=== PATIENT | female | born 1965 | race American Indian/Alaskan Native ===

== ENCOUNTER 2017-07-08 13:28 | Inpatient (IN) | payer OTHER ==
[2017-07-08 14:36] LABS: Basophils % (Auto) 0.2 % (0.0-1.8); Hematocrit 37.6 % (30.3-42.9); Lymphocytes # (Auto) 0.8 K/mm3 (1.2-5.4); Lymphocytes % (Auto) 6.4 % (13.4-35.0); Mean Corpuscular HGB Conc 35 % (30-34); Mean Corpuscular Hemoglobin 38 pg (28-32); Mean Corpuscular Volume 110 fl (79-97); Monocytes # (Auto) 0.5 K/mm3 (0.0-0.8); Monocytes % (Auto) 3.6 % (0.0-7.3); Platelet Count 153 K/mm3 (140-440); Red Blood Count 3.43 M/mm3 (3.65-5.03); Red Cell Distribution Width 18.7 % (13.2-15.2)
[2017-07-08 14:55] LABS: BUN/Creatinine Ratio 25; Blood Urea Nitrogen 20 mg/dL (7-17); Hemolysis Index 4
--- NOTE | 2017-07-08 15:57 | XRay Report ---
CHEST 2 VIEWS INDICATION: Shortness of breath.. COMPARISON: None similar. FINDINGS: PA and lateral chest radiographs demonstrate normal cardiomediastinal silhouette. Clear, slightly hyperexpanded lungs. Mild eventration of the right hemidiaphragm anteriorly. Intact bones. CONCLUSION: No acute disease in the chest. Thank you for the opportunity to participate in this patient's care.
[2017-07-08] MEDS ORDERED: NACL 0.9% 1000 ML 1,000 ML IV ONE (23:41)
[2017-07-08] MEDS ORDERED: NACL 0.9% IV SCH (23:45)
[2017-07-08] MEDS ORDERED: KCL IV SCH (23:45)
[2017-07-08] MEDS ORDERED: NACL 0.9% 1000 ML 1,000 ML ONE (23:58)
--- NOTE | 2017-07-09 00:04 | Emergency Department Report ---
ED General Adult HPI - General Chief complaint: Dyspnea/Respdistress Stated complaint: CP/SOB Time Seen by Provider: 07/08/17 23:14 Source: patient Mode of arrival: Ambulatory Limitations: No Limitations - History of Present Illness Initial comments: Patient fell about 9 days ago she had flu like symptoms. 2 days later she started having nausea and vomiting and diarrrhea. She's felt very weak since then. Yesterday she started having right-sided chest pain of mild to moderate intensity and nonradiating with no aggravating or relieving factor. Patient said that for the past 5 days she has not been able to keep anything down and has been having nausea and vomiting. She is also complaining of right upper quadrant pain and epigastric pain of moderate intensity and nonradiating with no aggravating or relieving factor. Patient said about 2 days ago she did have a fever however this has since subsided. Today the patient felt lightheaded and dizzy and actually passed out. 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 Patient said whenever she has symptoms like this she tends to have low potassium as a result she was taking potassium tablets but she doubts if she was able to keep them down. Severity scale (0 -10): 5 Associated Symptoms: nausea/vomiting - Related Data Allergies Allergy/AdvReac Type Severity Reaction Status Date / Time No Known Allergies Allergy Unverified 07/08/17 14:11 ED Review of Systems ROS: Stated complaint: CP/SOB Other details as noted in HPI Comment: All other systems reviewed and negative ED Past Medical Hx - Past Medical History Previous Medical History?: Yes Hx Arthritis: Yes Hx Psychiatric Treatment: Yes (anxiety) Additional medical history: swine flu 2010, Bronchitis - Surgical History Past Surgical History?: Yes Additional Surgical History: Partial hysterectomy, x 2 - Social History Smoking Status: Current Every Day Smoker Substance Use Type: Alcohol, Prescribed ED Physical Exam - General Limitations: No Limitations General appearance: alert, lethargic - Head Head exam: Present: atraumatic, normocephalic - Eye Eye exam: Present: normal appearance, PERRL, other (icteric conjunctiva) - ENT ENT exam: Present: normal exam, normal orophraynx - Neck Neck exam: Present: normal inspection. Absent: tenderness - Respiratory Respiratory exam: Present: normal lung sounds bilaterally. Absent: respiratory distress - Cardiovascular Cardiovascular Exam: Present: regular rate, normal rhythm. Absent: systolic murmur, diastolic murmur, rubs, gallop - GI/Abdominal GI/Abdominal exam: Present: soft, tenderness (right upper quadrant tenderness.) , normal bowel sounds, organomegaly (the liver is palpably enlarged) - Rectal Rectal exam: Present: deferred - Extremities Exam Extremities exam: Present: normal inspection. Absent: full ROM - Back Exam Back exam: Present: normal inspection, full ROM - Neurological Exam Neurological exam: Present: alert, oriented X3 - Psychiatric Psychiatric exam: Present: normal affect, normal mood - Skin Skin exam: Present: warm, dry, intact, normal color. Absent: rash ED Course Vital Signs 07/08/17 07/08/17 07/08/17 14:06 20:18 22:01 Temperature 97.5 F L 97.6 F 97.7 F Pulse Rate 101 H 100 H 104 H Respiratory 16 16 20 Rate Blood Pressure 107/65 Blood Pressure 109/69 [Left] Blood Pressure 97/56 [Right] O2 Sat by Pulse 100 96 96 Oximetry 07/08/17 07/08/17 07/08/17 22:03 23:41 23:46 Temperature Pulse Rate 96 H Respiratory 20 15 16 Rate Blood Pressure 105/60 Blood Pressure [Left] Blood Pressure [Right] O2 Sat by Pulse 96 94 96 Oximetry 07/08/17 07/09/17 07/09/17 23:57 00:00 00:16 Temperature 98.5 F Pulse Rate 96 H 95 H Respiratory 19 14 Rate Blood Pressure 107/63 107/63 Blood Pressure [Left] Blood Pressure [Right] O2 Sat by Pulse 97 98 Oximetry ED Medical Decision Making - Lab Data Result diagrams: 07/08/17 14:17 07/08/17 14:17 - EKG Data -: EKG Interpreted by Pa EKG shows normal: sinus rhythm (Normal sinus rhythm at a rate of 97), axis ( normal axis), intervals (prolonged QT interval), QRS complexes (normal), ST-T waves (no ST or T-wave changes) - Radiology Data Radiology results: report reviewed - Medical Decision Making I talked to who as decided to admit the patient. Critical care attestation.: If time is entered above; I have spent that time in minutes in the direct care of this critically ill patient, excluding procedure time. ED Disposition Clinical Impression: Hyponatremia, Syncope, Hypokalemia, Elevated liver function tests Disposition: DC-09 OP ADMIT IP TO THIS HOSP Is pt being admited?: Yes Does the pt Need Aspirin: No Condition: Stable
[2017-07-09 00:55] LABS: Bilirubin,Direct 10.4 mg/dL (0-0.2)
[2017-07-09] MEDS ORDERED: KCL 10 MEQ in NACL 0.9% 1000 ML 1,000 ML IV SCH (01:00)
[2017-07-09] MEDS ORDERED: KCL IV ONE ×2 (01:30→06:00)
[2017-07-09] MEDS ORDERED: NACL 0.9% IV ONE (01:30)
--- NOTE | 2017-07-09 01:57 | Ultrasound Report ---
FINAL REPORT EXAM: US ABDOMEN LIMITED HISTORY: right upper quadrant pain, enlarged liver TECHNIQUE: Routine imaging was obtained of the right upper quadrant. FINDINGS: The liver reveals diffusely increased echotexture suggesting fatty change/cirrhosis. There are no focal hepatic lesions. The gallbladder is normal in size and wall thickness. There is dependent sludge in the gallbladder. Stones are not seen. A Mendenhall sign was not elicited. The common bile duct is enlarged measuring 8.7 mm in diameter. The pancreas is not adequately seen for evaluation. There is a small amount of free fluid in the right upper outer quadrant. The right kidney shows no evidence of hydronephrosis. IMPRESSION: Diffusely increased echotexture of the liver compatible underlying hepatic steatosis/cirrhosis. Dependent sludge in the gallbladder. No stones or secondary signs of acute cholecystitis. Mildly dilated common bile duct at 8.7 mm. A distal common duct stone cannot be excluded. Ascites.
[2017-07-09] MEDS ORDERED: TYLENOL PO PRN (02:46)
[2017-07-09] MEDS ORDERED: ZOFRAN IV PRN (02:46)
[2017-07-09] MEDS: DILAUDID IV PRN ×3 (03:06→23:09)
[2017-07-09] MEDS: NITRO-BID 2% TP SCH ×4 (04:08→17:08)
[2017-07-09] MEDS ORDERED: NACL 0.9% 1000 ML 1,000 ML with KCL 20 MEQ IV ONE (04:18)
--- NOTE | 2017-07-09 04:39 | History and Physical Report ---
CHIEF COMPLAINT: Difficulty in breathing. Other complaint includes yellowness of the eye, nausea, vomiting, abdominal pain, and chest pain. HISTORY OF PRESENT ILLNESS: The patient is a 51-year-old female, who said she has flu-like symptoms going on for a few days, then started having nausea, vomiting, and diarrhea. The patient also complains of weakness and generalized body pain including the chest and abdomen. The patient also complained of yellowness of the eyes and body and said that the abdominal pain is in the right upper quadrant abdominal area and has moderate intensity in character. The patient said she had some fever 2 days ago, but not currently at the day of presentation to the Emergency Room. The patient also stated she felt lightheaded and passed out and said that the patient also gave the history that whenever she feels like the way she felt at the time of presentation, she ends off having low potassium level. PAST MEDICAL HISTORY: Pertinent for arthritis, anxiety disorder, swine flu in the year 2009, and also bronchitis. PAST SURGICAL HISTORY: Pertinent for partial hysterectomy, twice. FAMILY HISTORY: Noncontributory. SOCIAL HISTORY: The patient drinks alcohol, smokes cigarettes, and does not use illicit drugs. MEDICATIONS: The patient's home medications are not known. ALLERGIES: There are no known drug allergies. REVIEW OF SYSTEMS: CONSTITUTIONAL: There is history of fever with no chills and no diaphoresis. HEENT: There is no headache or sore throat. CARDIOVASCULAR SYSTEM: There is chest pain with no orthopnea. RESPIRATORY SYSTEM: Shortness of breath present. Cough and congestion present. GASTROINTESTINAL SYSTEM: There is abdominal pain, nausea, vomiting, and diarrhea. NEUROLOGICAL SYSTEM: There is dizziness and syncopal episode. MUSCULOSKELETAL SYSTEM: There is no joint pain or swelling. DERMATOLOGICAL SYSTEM: There is history of yellowness of the eyes and body with no itching. GENITOURINARY SYSTEM: There is no dysuria, hematuria, or flank pain. Rest of system review is normal. PHYSICAL EXAMINATION: GENERAL: At the time of exam, the patient was found to be alert, oriented x 3, and not in acute distress. VITAL SIGNS: Shows normal temperature with pulse of 95, respirations 10, blood pressure 100/63, O2 sat of 98% on room air. HEENT: Show pupils to be equal, round, reactive to light and accommodation. Extraocular muscles are intact. The eyes appear yellow with icteric jaundice. NECK: Supple with no JVD or carotid bruits. CARDIOVASCULAR SYSTEM: Show normal first and second heart sounds with no gallops or murmur. RESPIRATORY SYSTEM: Show good air entry on both sides of the lungs with no abnormal breath sounds. GASTROINTESTINAL SYSTEM: Show abdomen to be enlarged, nontender with positive shifting, dullness. Normal bowel sounds and no rigidity or rebound tenderness. NEUROLOGICAL SYSTEM: Shows no focal deficit. MUSCULOSKELETAL SYSTEM: Show no joint swelling or tenderness. DERMATOLOGICAL SYSTEM: Show yellowness of the eyes and also yellowness of the skin with no rashes were elicited. GENITOURINARY SYSTEM: Show no costovertebral angle tenderness. PERTINENT LABORATORY AND IMAGING STUDIES: The patient has CBC done with elevated white count of 13,100, normal hemoglobin, normal hematocrit, and CBC differential showing elevated segment neutrophil of 89.8% with no significant bands. Chemistry show low sodium level of 125 with low potassium level of 2.4 and low chloride level of 69.7 and elevated BUN of 20. The patient's chemistry shows a low calcium level of 8.0 with correspondingly low albumin level of 3.0. The patient's magnesium level was also low with a value of 1.2 and total bilirubin level was high with a value of 16.5 and direct bilirubin was also high with a value of 10.4 and indirect bilirubin level is normal. Liver transaminases show high AST of 399 and high ALT of 140, alkaline phosphatase level came back normal. Troponin level was normal. Lipase level was normal. IMAGING STUDIES: The patient had a chest x-ray done that shows no acute disease in the chest and also the patient had abdominal ultrasound done that shows the following findings, diffusely increased echotexture of the liver compatible underlying hepatic steatosis/cirrhosis noted. There is also finding of dependent sludge in the gallbladder with no stones or secondary signs of acute cholecystitis. There is a mildly dilated common bile duct at 8.7 mm. A distal common bile duct still cannot be excluded DIAGNOSES: 1. Electrolyte imbalance. 2. Chest pain. 3. Liver cirrhosis with ascites. 4. Syncopal attack. PLAN: The patient will be admitted to medical floor on telemetry. The patient will have GI consult with the on-call gastroenterology from [facility] and patient will have cardiac enzymes involving troponin, total CK, and CK-MB checked q. 6 hours x 2 more levels. We will have 2D echo done in the morning because of syncopal attack and has already had normal saline bolus in the Emergency Room and as such patient will have basic metabolic panel done in the morning to follow up with the low sodium and low potassium. The patient has had potassium replacement in the Emergency Room prior to admission. The patient will be on IV Dilaudid 0.5 mg every 4 hours as needed for pain and IV Zofran 4 mg every 6 hours for nausea and vomiting. The patient will be on nitro paste half inch to anterior chest wall q. 6 hours because of chest pain and will also be on aspirin 325 mg daily. The patient will also be on Tylenol 650 mg by mouth every 4 hours as needed for fever and headache and will be on nitro paste half inch to anterior chest for q. 6 hours because of chest pain. The patient will also have bilateral carotid Doppler done in the morning because of syncopal attack and patient would have her home medications reconciled and applied accordingly. JOB# [id number] OCN/NTS
[2017-07-09] MEDS ORDERED: PHENERGAN PR ONE (05:40)
[2017-07-09] MEDS ORDERED: D5W IV ONE (06:00)
[2017-07-09] MEDS ORDERED: KCL 10MEQ/100ML 10 MEQ/100 ML BAG IV SCH (06:00)
[2017-07-09] MEDS: NACL 0.9% 1000 ML 1,000 ML IV SCH ×2 (06:55→17:03)
[2017-07-09 08:25] LABS: BUN/Creatinine Ratio 26; Blood Urea Nitrogen 23 mg/dL (7-17); Hemolysis Index 2
[2017-07-09 08:30] LABS: Calcium 6.7 mg/dL (8.4-10.2)
[2017-07-09] MEDS: ASPIRIN PO SCH (09:36)
[2017-07-09] MEDS: HEPARIN SUB-Q SCH ×2 (09:37→21:40)
--- NOTE | 2017-07-09 10:09 | Event Note ---
Date: 07/09/17 Patient seen and examined. We will continue the plan as outlined H&P. Follow- up with GI consultation and recommendations.
[2017-07-09] MEDS ORDERED: K-DUR PO ONE ×2 (10:10→14:30)
[2017-07-09 11:25] LABS: INR 1.65 (0.87-1.13)
--- NOTE | 2017-07-09 11:26 | Gastroenterology Consultation ---
History of Present Illness - Reason for Consult Consult date: 07/09/17 jaundice, cirrhosis, CBD stone Requesting physician: MARY ANN POST - History of Present Illness Patient is a 51 y/o female with PMH of arthritis, anxiety, swine flu, bronchitis , nicotine dependency, and ETOH abuse who presented to ED with multiple complaints to include flu like symptoms , N/V, diarrhea, RUQ/epigastric pain, dizziness, and weakness. LFTs were found to be elevated on admission with abd U/ S revealing underlying hepatic steatosis/cirrhosis, sludge in gallbaldder, mildly dilated CBD, and ascites. This morning pt was resting in bed w/o acute distress and family at bedside. She reports continued nausea w/o vomiting this am and abd pain. Abd pain is located in RUQ and described as intermittent and non-radiating. No aggravating or alleviating factors. No known previous liver disease but admits to ETOH abuse with drinking alcohol daily. When asked about amount of daily alcohol, she responded with having "more than I should". No hx of IV drug use or Fhx of liver disease. Diarrhea now improved. Denies fever, wt , loss, or signs of bleeding. Past History Past Medical History: arthritis, other (anxiety, swine flu (2009), bronchitis) Past Surgical History: (x2), hysterectomy (partial) Social history: smoking, alcohol abuse Medications and Allergies Allergies Allergy/AdvReac Type Severity Reaction Status Date / Time No Known Allergies Allergy Unverified 07/08/17 14:11 Active Meds: Active Medications Acetaminophen (Tylenol) 650 mg PO Q4H PRN PRN Reason: For Pain/Fever/Headache Aspirin (Aspirin) 325 mg PO QDAY JOSEFINA Last Admin: 07/09/17 09:36 Dose: 325 mg Heparin Sodium (Porcine) (Heparin) 5,000 unit SUB-Q Q12HR JOSEFINA Last Admin: 07/09/17 09:37 Dose: 5,000 unit Hydromorphone HCl (Dilaudid) 0.5 mg IV Q4H PRN PRN Reason: Pain Last Admin: 07/09/17 03:06 Dose: 0.5 mg Sodium Chloride (Nacl 0.9% 1000 Ml) 1,000 mls @ 125 mls/hr IV DIRECT JOSEFINA Last Admin: 07/09/17 06:55 Dose: 125 mls/hr Nitroglycerin (Nitro-Bid 2%) 0.5 inch TP QIDNTG JOSEFINA PRN Reason: Protocol Last Admin: 07/09/17 09:36 Dose: Not Given Ondansetron HCl (Zofran) 4 mg IV Q4H PRN PRN Reason: Nausea And Vomiting Potassium Chloride (K-Dur) 40 meq PO ONCE ONE Stop: 07/09/17 14:31 Review of Systems - Review of Systems Gastrointestinal: abdominal pain, nausea Exam - Constitutional Vital Signs: Temp Pulse Resp BP Pulse Ox 98.3 F 103 H 18 90/46 95 07/09/17 07:29 07/09/17 07:29 07/09/17 07:29 07/09/17 07:29 07/09/17 07:29 General appearance: no acute distress, other (ill appearing) - EENT Eyes: scleral icterus - Respiratory Respiratory: bilateral: CTA (anterior) - Cardiovascular Rhythm: other (tachycardia) Heart Sounds: Present: S1 & S2 - Gastrointestinal General gastrointestinal: Present: tender (RUQ), distended (mildly), normal bowel sounds, hepatomegaly - Integumentary Integumentary: Present: warm, dry, jaundice - Neurologic Neurological: alert and oriented x3 - Labs CBC & Chem 7: 07/08/17 14:17 07/09/17 07:21 Lab Results: Laboratory Results - last 24 hr 07/08/17 07/08/17 07/08/17 14:17 14:17 14:17 WBC 13.1 H RBC 3.43 L Hgb 13.0 Hct 37.6 MCV 110 H MCH 38 H MCHC 35 H RDW 18.7 H Plt Count 153 Lymph % (Auto) 6.4 L [place] % (Auto) 3.6 Eos % (Auto) 0.0 Baso % (Auto) 0.2 Lymph # 0.8 L [place] # 0.5 Eos # 0.0 Baso # 0.0 Seg Neutrophils % 89.8 H Seg Neutrophils # 11.7 H Sodium 125 L Potassium 2.4 L* Chloride 69.7 L Carbon Dioxide 26 Anion Gap 32 BUN 20 H Creatinine 0.8 Estimated GFR > 60 BUN/Creatinine Ratio 25 Glucose 117 H Calcium 8.0 L Magnesium Total Bilirubin 16.50 H Direct Bilirubin 10.4 H Indirect Bilirubin 6.1 AST 399 H ALT 140 H Alkaline Phosphatase 127 Ammonia Total Creatine Kinase CK-MB (CK-2) CK-MB (CK-2) Rel Index Troponin T < 0.010 Total Protein 6.7 Albumin 3.0 L Albumin/Globulin Ratio 0.8 Lipase 07/09/17 07/09/17 07/09/17 00:47 00:47 01:01 WBC RBC Hgb Hct MCV MCH MCHC RDW Plt Count Lymph % (Auto) [place] % (Auto) Eos % (Auto) Baso % (Auto) Lymph # [place] # Eos # Baso # Seg Neutrophils % Seg Neutrophils # Sodium Potassium Chloride Carbon Dioxide Anion Gap BUN Creatinine Estimated GFR BUN/Creatinine Ratio Glucose Calcium Magnesium 1.20 L Total Bilirubin Direct Bilirubin Indirect Bilirubin AST ALT Alkaline Phosphatase Ammonia 54.0 Total Creatine Kinase CK-MB (CK-2) CK-MB (CK-2) Rel Index Troponin T Total Protein Albumin Albumin/Globulin Ratio Lipase 36 07/09/17 07/09/17 07/09/17 07:21 07:21 10:45 WBC RBC Hgb Hct MCV MCH MCHC RDW Plt Count Lymph % (Auto) [place] % (Auto) Eos % (Auto) Baso % (Auto) Lymph # [place] # Eos # Baso # Seg Neutrophils % Seg Neutrophils # Sodium 129 L Potassium 2.7 L* Chloride 81.3 L Carbon Dioxide 27 Anion Gap 23 BUN 23 H Creatinine 0.9 Estimated GFR > 60 BUN/Creatinine Ratio 26 Glucose 56 L Calcium 6.7 L D Magnesium Total Bilirubin Direct Bilirubin Indirect Bilirubin AST ALT Alkaline Phosphatase Ammonia Total Creatine Kinase 68 67 CK-MB (CK-2) 2.0 2.0 CK-MB (CK-2) Rel Index 2.9 2.9 Troponin T < 0.010 < 0.010 Total Protein Albumin Albumin/Globulin Ratio Lipase Assessment and Plan 1.elevated LFTs 2.cirrhosis 2.jaundice 3.abd pain 4.ETOH abuse -afebrile -WBC 13.1 -plt 153, Tbil 16.5, AST 399, ALT 140, alk phos 127 -lipase 36-WNL -INR-1.65 -abd U/S revealed underlying hepatic steatosis/cirrhosis, sludge in gallbladder , mildly dilated CBD, and ascites -will order MRCP for evaluation -cirrhosis- most likely 2/2 ETOH abuse -will order acute hepatitis panel and auto immune markers to r/o other causes -continue to trend LFTs -continue supportive care -counseled pt on alcohol avoidance- CIWA protocol -further recommendations to follow
[2017-07-09] MEDS ORDERED: ATIVAN IV PRN ×2 (14:31)
[2017-07-09] MEDS: ZOFRAN IV PRN (16:01)
[2017-07-09 18:34] LABS: BUN/Creatinine Ratio 29; Blood Urea Nitrogen 23 mg/dL (7-17); Calcium 6.8 mg/dL (8.4-10.2); Hemolysis Index 5
[2017-07-09 18:42] LABS: Iron 146 ug/dL (37-170)
[2017-07-09 18:46] LABS: Hepatitis A Antibody IgM Non-Reactive (NonReactive); Hepatitis B Core IgM Non-Reactive (NonReactive); Hepatitis B Surface Antigen Non-Reactive (Negative); Hepatitis C Virus Antibody Non-Reactive (NonReactive)
[2017-07-09 18:54] LABS: Total Iron Binding Capacity 134 mcg/dL (250-450)
[2017-07-10] MEDS: DILAUDID IV PRN ×4 (05:56→21:34)
[2017-07-10] MEDS: ZOFRAN IV PRN ×4 (05:59→21:34)
[2017-07-10 06:28] LABS: Basophils % (Auto) 0.2 % (0.0-1.8); Eosinophils # (Auto) 0.1 K/mm3 (0.0-0.4); Eosinophils % (Auto) 0.8 % (0.0-4.3); Hematocrit 34.6 % (30.3-42.9); Hemoglobin 11.9 gm/dl (10.1-14.3); Lymphocytes # (Auto) 1.1 K/mm3 (1.2-5.4); Lymphocytes % (Auto) 9.2 % (13.4-35.0); Mean Corpuscular HGB Conc 35 % (30-34); Mean Corpuscular Hemoglobin 37 pg (28-32); Mean Corpuscular Volume 109 fl (79-97); Monocytes # (Auto) 0.4 K/mm3 (0.0-0.8); Monocytes % (Auto) 3.6 % (0.0-7.3); Platelet Count 145 K/mm3 (140-440); Red Blood Count 3.19 M/mm3 (3.65-5.03); Red Cell Distribution Width 18.9 % (13.2-15.2)
[2017-07-10 06:48] LABS: BUN/Creatinine Ratio 60; Blood Urea Nitrogen 24 mg/dL (7-17); Calcium 6.8 mg/dL (8.4-10.2); Hemolysis Index 33
[2017-07-10 08:40] LABS: Magnesium 1.4 mg/dL (1.7-2.3)
[2017-07-10] MEDS: NACL 0.9% 1000 ML 1,000 ML IV SCH (08:48)
[2017-07-10] MEDS ORDERED: ATIVAN IV ONE (09:00)
[2017-07-10] MEDS: NITRO-BID 2% TP SCH ×2 (10:00→14:00)
--- NOTE | 2017-07-10 10:11 | Progress Note ---
Assessment and Plan Assessment and plan: Jaundiced. GI Physician evaluation ongoing. For MRCP Elevated LFT. Repeat in am. Possible cirrhosis of liver. For MRCP. GI Physician following. Nausea and vomiting. Zofran iv prn Hyponatremia likely due to cirrhosis Hypokalemia, improved. Potassium 3.6 today Hypomagnesemia. Replace iv and recheck tomorrow Hypophosphatemia. Replace iv and recheck tomorrow History Interval history: Abdominal pain, syncope nausea and vomiting jaundice Hospitalist Physical - Physical exam Narrative exam: GEN APPEARANCE : Not in acute distress,jaundiced HEENT: Normocephalic, Atraumatic NECK : supple, no JVD LUNGS: Clear to auscultation bilaterally, no rales, no wheeze HEART: S1 and S2 regular, no murmurs, rubs or gallop, ABD: Soft, non tender, distended, normal bowel sounds EXT:No edema, no clubbing, no cyanosis NEURO: Awake, alert,oriented x 3, no focal signs Psych:Normal mood - Constitutional Vitals: Temp Pulse Resp BP Pulse Ox 98.1 F 89 18 105/68 96 07/10/17 07:12 07/09/17 19:00 07/10/17 08:50 07/10/17 07:12 07/09/17 19:00 Results - Labs CBC & Chem 7: 07/10/17 05:06 07/10/17 05:06 Labs: Laboratory Last Values WBC 12.0 K/mm3 (4.5-11.0) H 07/10/17 05:06 RBC 3.19 M/mm3 (3.65-5.03) L 07/10/17 05:06 Hgb 11.9 gm/dl (10.1-14.3) 07/10/17 05:06 Hct 34.6 % (30.3-42.9) 07/10/17 05:06 MCV 109 fl (79-97) H 07/10/17 05:06 MCH 37 pg (28-32) H 07/10/17 05:06 MCHC 35 % (30-34) H 07/10/17 05:06 RDW 18.9 % (13.2-15.2) H 07/10/17 05:06 Plt Count 145 K/mm3 (140-440) 07/10/17 05:06 Lymph % (Auto) 9.2 % (13.4-35.0) L 07/10/17 05:06 [place] % (Auto) 3.6 % (0.0-7.3) 07/10/17 05:06 Eos % (Auto) 0.8 % (0.0-4.3) 07/10/17 05:06 Baso % (Auto) 0.2 % (0.0-1.8) 07/10/17 05:06 Lymph # 1.1 K/mm3 (1.2-5.4) L 07/10/17 05:06 [place] # 0.4 K/mm3 (0.0-0.8) 07/10/17 05:06 Eos # 0.1 K/mm3 (0.0-0.4) 07/10/17 05:06 Baso # 0.0 K/mm3 (0.0-0.1) 07/10/17 05:06 Seg Neutrophils % 86.2 % (40.0-70.0) H 07/10/17 05:06 Seg Neutrophils # 10.3 K/mm3 (1.8-7.7) H 07/10/17 05:06 PT 20.5 Sec. (12.2-14.9) H 07/09/17 10:45 INR 1.65 (0.87-1.13) H 07/09/17 10:45 Sodium 127 mmol/L (137-145) L 07/10/17 05:06 Potassium 3.6 mmol/L (3.6-5.0) 07/10/17 05:06 Chloride 86.0 mmol/L (98-107) L 07/10/17 05:06 Carbon Dioxide 21 mmol/L (22-30) L 07/10/17 05:06 Anion Gap 24 mmol/L 07/10/17 05:06 BUN 24 mg/dL (7-17) H 07/10/17 05:06 Creatinine 0.4 mg/dL (0.7-1.2) L 07/10/17 05:06 Estimated GFR > 60 ml/min 07/10/17 05:06 BUN/Creatinine Ratio 60 % 07/10/17 05:06 Glucose 82 mg/dL (65-100) 07/10/17 05:06 Calcium 6.8 mg/dL (8.4-10.2) L 07/10/17 05:06 Phosphorus 1.30 mg/dL (2.5-4.5) L 07/10/17 05:06 Magnesium 1.40 mg/dL (1.7-2.3) L 07/10/17 05:06 Iron 146 ug/dL (37-170) 07/09/17 17:56 TIBC 134 mcg/dL (250-450) L 07/09/17 17:56 Ferritin 845.5 ng/mL (13.0-400.0) H 07/09/17 17:56 Total Bilirubin 16.50 mg/dL (0.1-1.2) H 07/08/17 14:17 Direct Bilirubin 10.4 mg/dL (0-0.2) H 07/08/17 14:17 Indirect Bilirubin 6.1 mg/dL 07/08/17 14:17 AST 399 units/L (5-40) H 07/08/17 14:17 ALT 140 units/L (7-56) H 07/08/17 14:17 Alkaline Phosphatase 127 units/L (35-129) 07/08/17 14:17 Ammonia 54.0 umol/L (25-60) 07/09/17 00:47 Total Creatine Kinase 67 units/L (30-135) 07/09/17 10:45 CK-MB (CK-2) 2.0 ng/mL (0.0-4.0) 07/09/17 10:45 CK-MB (CK-2) Rel Index 2.9 (0-4) 07/09/17 10:45 Troponin T < 0.010 ng/mL (0.00-0.029) 07/09/17 10:45 Total Protein 6.7 g/dL (6.3-8.2) 07/08/17 14:17 Albumin 3.0 g/dL (3.9-5) L 07/08/17 14:17 Albumin/Globulin Ratio 0.8 % 07/08/17 14:17 Lipase 36 units/L (13-60) 07/09/17 00:47 Hepatitis A IgM Ab Non-reactive (NonReactive) 07/09/17 17:56 Hep Bs Antigen Non-reactive (Negative) 07/09/17 17:56 Hep B Core IgM Ab Non-reactive (NonReactive) 07/09/17 17:56 Hepatitis C Antibody Non-reactive (NonReactive) 07/09/17 17:56
[2017-07-10] MEDS: ASPIRIN PO SCH (10:20)
[2017-07-10] MEDS: HEPARIN SUB-Q SCH ×2 (10:20→21:23)
[2017-07-10] MEDS ORDERED: MAGNESIUM SULFATE 4GM/100ML 4 GM/100 ML BAG IV ONE (10:30)
[2017-07-10] MEDS ORDERED: SODIUM PHOSPHATE 45 MMOL in NACL 0.9% 500 ML 500 ML IV ONE (11:30)
--- NOTE | 2017-07-10 19:43 | Gastroenterology Progress Note ---
Assessment and Plan GI: pt presented w/ increase LFT's and jaundice with signs cirrhosis on imaging in setting of chronic etoh use - suspect etoh hepatitis but would like to r/o biliary process - pt still refusing MRCP, discussed it's need with pt and family - will follow up repeat labs in am and consider need for steroids - pt to consider MRCP - watch for signs etoh withdrawal - continue other meds and diet - will need as outpt for cirrhosis - will follow Subjective Date of service: 07/10/17 Interval history: - pt refusing MRCP. Reports feeling a little better Objective - Constitutional Vitals: Temp Pulse Resp BP Pulse Ox 98.6 F 101 H 20 104/62 96 07/10/17 15:24 07/10/17 15:24 07/10/17 17:09 07/10/17 15:24 07/10/17 15:24 General appearance: no acute distress - Respiratory Respiratory: bilateral: CTA - Cardiovascular Rhythm: regular Heart Sounds: Present: S1 & S2 - Gastrointestinal General gastrointestinal: Present: soft, non-tender, non-distended - Labs CBC & Chem 7: 07/10/17 05:06 07/10/17 05:06 Labs: Laboratory Results - last 24 hr 07/10/17 07/10/17 07/10/17 05:06 05:06 05:06 WBC 12.0 H RBC 3.19 L Hgb 11.9 Hct 34.6 MCV 109 H MCH 37 H MCHC 35 H RDW 18.9 H Plt Count 145 Lymph % (Auto) 9.2 L [place] % (Auto) 3.6 Eos % (Auto) 0.8 Baso % (Auto) 0.2 Lymph # 1.1 L [place] # 0.4 Eos # 0.1 Baso # 0.0 Seg Neutrophils % 86.2 H Seg Neutrophils # 10.3 H Sodium 127 L Potassium 3.6 Chloride 86.0 L Carbon Dioxide 21 L Anion Gap 24 BUN 24 H Creatinine 0.4 L Estimated GFR > 60 BUN/Creatinine Ratio 60 Glucose 82 Calcium 6.8 L Phosphorus 1.30 L Magnesium 1.40 L
[2017-07-11] MEDS: DILAUDID IV PRN ×6 (01:28→20:24)
[2017-07-11] MEDS: ZOFRAN IV PRN ×6 (01:28→20:25)
[2017-07-11] MEDS: NITRO-BID 2% TP SCH ×4 (06:32→21:25)
[2017-07-11 08:27] LABS: Hematocrit 32.6 % (30.3-42.9); Hemoglobin 11.3 gm/dl (10.1-14.3); Mean Corpuscular HGB Conc 35 % (30-34); Mean Corpuscular Hemoglobin 38 pg (28-32); Platelet Count 123 K/mm3 (140-440); Red Blood Count 2.93 M/mm3 (3.65-5.03); Red Cell Distribution Width 19.1 % (13.2-15.2)
[2017-07-11 08:31] LABS: Mean Corpuscular Volume 111 fl (79-97)
[2017-07-11 08:41] LABS: Alanine Aminotransferase 171 units/L (7-56); Albumin 2.7 g/dL (3.9-5); BUN/Creatinine Ratio 37; Blood Urea Nitrogen 26 mg/dL (7-17); Calcium 6.4 mg/dL (8.4-10.2); Hemolysis Index 0
[2017-07-11 09:01] LABS: Albumin 2.7 g/dL (3.9-5)
[2017-07-11 09:10] LABS: Magnesium 2.4 mg/dL (1.7-2.3)
[2017-07-11 09:38] LABS: Bilirubin,Direct 16.5 mg/dL (0-0.2)
--- NOTE | 2017-07-11 09:50 | Progress Note ---
Assessment and Plan Assessment and plan: Jaundiced. GI Physician evaluation ongoing. MRCP Abdomnenordered. Patient states she cannot do MRCP because of claustrophobia Elevated LFT. Ongoing evaluation Possible cirrhosis of liver. For MRCP Abdomen. GI Physician following. Nausea and vomiting. Zofran iv prn Alcohol abuse. Advised against alcohol Hyponatremia likely due to cirrhosis Hypokalemia. Potassium 3.2. Give k-dur orally Hypomagnesemia. Resolved after replacement Hypophosphatemia. Resolved after replacement. History Interval history: Abdominal pain, syncope nausea and vomiting jaundice Claustrophobia so cannot do MRCP Hospitalist Physical - Physical exam Narrative exam: GEN APPEARANCE : Not in acute distress,jaundiced HEENT: Normocephalic, Atraumatic NECK : supple, no JVD LUNGS: Clear to auscultation bilaterally, no rales, no wheeze HEART: S1 and S2 regular, no murmurs, rubs or gallop, ABD: Soft, non tender, distended, normal bowel sounds EXT:No edema, no clubbing, no cyanosis NEURO: Awake, alert,oriented x 3, no focal signs Psych:Normal mood - Constitutional Vitals: Temp Pulse Resp BP Pulse Ox 98.2 F 103 H 16 108/64 92 07/11/17 08:05 07/11/17 08:05 07/11/17 08:05 07/11/17 08:05 07/11/17 08:05 Results - Labs CBC & Chem 7: 07/11/17 07:23 07/11/17 07:23 Labs: Laboratory Last Values WBC 11.8 K/mm3 (4.5-11.0) H 07/11/17 07:23 RBC 2.93 M/mm3 (3.65-5.03) L 07/11/17 07:23 Hgb 11.3 gm/dl (10.1-14.3) 07/11/17 07:23 Hct 32.6 % (30.3-42.9) 07/11/17 07:23 MCV 111 fl (79-97) H 07/11/17 07:23 MCH 38 pg (28-32) H 07/11/17 07:23 MCHC 35 % (30-34) H 07/11/17 07:23 RDW 19.1 % (13.2-15.2) H 07/11/17 07:23 Plt Count 123 K/mm3 (140-440) L 07/11/17 07:23 Lymph % (Auto) 9.2 % (13.4-35.0) L 07/10/17 05:06 Lynn % (Auto) 3.6 % (0.0-7.3) 07/10/17 05:06 Eos % (Auto) 0.8 % (0.0-4.3) 07/10/17 05:06 Baso % (Auto) 0.2 % (0.0-1.8) 07/10/17 05:06 Lymph # 1.1 K/mm3 (1.2-5.4) L 07/10/17 05:06 Lynn # 0.4 K/mm3 (0.0-0.8) 07/10/17 05:06 Eos # 0.1 K/mm3 (0.0-0.4) 07/10/17 05:06 Baso # 0.0 K/mm3 (0.0-0.1) 07/10/17 05:06 Seg Neutrophils % Plugging Machine Operator 07/11/17 07:23 Seg Neutrophils # 10.3 K/mm3 (1.8-7.7) H 07/10/17 05:06 PT 20.5 Sec. (12.2-14.9) H 07/09/17 10:45 INR 1.65 (0.87-1.13) H 07/09/17 10:45 Sodium 126 mmol/L (137-145) L 07/11/17 07:23 Potassium 3.2 mmol/L (3.6-5.0) L 07/11/17 07:23 Chloride 83.0 mmol/L (98-107) L 07/11/17 07:23 Carbon Dioxide 21 mmol/L (22-30) L 07/11/17 07:23 Anion Gap 25 mmol/L 07/11/17 07:23 BUN 26 mg/dL (7-17) H 07/11/17 07:23 Creatinine 0.7 mg/dL (0.7-1.2) D 07/11/17 07:23 Estimated GFR > 60 ml/min 07/11/17 07:23 BUN/Creatinine Ratio 37 % 07/11/17 07:23 Glucose 68 mg/dL (65-100) 07/11/17 07:23 Calcium 6.4 mg/dL (8.4-10.2) L 07/11/17 07:23 Phosphorus 4.90 mg/dL (2.5-4.5) H D 07/11/17 07:23 Magnesium 2.40 mg/dL (1.7-2.3) H 07/11/17 07:23 Iron 146 ug/dL (37-170) 07/09/17 17:56 TIBC 134 mcg/dL (250-450) L 07/09/17 17:56 Ferritin 845.5 ng/mL (13.0-400.0) H 07/09/17 17:56 Total Bilirubin 25.00 mg/dL (0.1-1.2) H 07/11/17 07:23 Direct Bilirubin 16.5 mg/dL (0-0.2) H 07/11/17 07:23 Indirect Bilirubin 8.5 mg/dL 07/11/17 07:23 AST 380 units/L (5-40) H 07/11/17 07:23 ALT 169 units/L (7-56) H 07/11/17 07:23 Alkaline Phosphatase 113 units/L (35-129) 07/11/17 07:23 Ammonia 54.0 umol/L (25-60) 07/09/17 00:47 Total Creatine Kinase 67 units/L (30-135) 07/09/17 10:45 CK-MB (CK-2) 2.0 ng/mL (0.0-4.0) 07/09/17 10:45 CK-MB (CK-2) Rel Index 2.9 (0-4) 07/09/17 10:45 Troponin T < 0.010 ng/mL (0.00-0.029) 07/09/17 10:45 Total Protein 5.6 g/dL (6.3-8.2) L 07/11/17 07:23 Albumin 2.7 g/dL (3.9-5) L 07/11/17 07:23 Albumin/Globulin Ratio 0.9 % 07/11/17 07:23 Lipase 36 units/L (13-60) 07/09/17 00:47 Hepatitis A IgM Ab Non-reactive (NonReactive) 07/09/17 17:56 Hep Bs Antigen Non-reactive (Negative) 07/09/17 17:56 Hep B Core IgM Ab Non-reactive (NonReactive) 07/09/17 17:56 Hepatitis C Antibody Non-reactive (NonReactive) 07/09/17 17:56
[2017-07-11] MEDS: HEPARIN SUB-Q SCH ×2 (10:12→21:26)
[2017-07-11] MEDS: ASPIRIN PO SCH (10:12)
[2017-07-11 10:33] LABS: Anisocytosis 1+; Band Neutrophils # (Manual) 0.1 K/mm3; Basophils % (Manual) 0 % (0.0-1.8); Eosinophils % (Manual) 0 % (0.0-4.3); Total Cells Counted 100
[2017-07-11 10:34] LABS: Large Platelets Few; Macrocytosis 2+; Platelet Estimate Consistent w Auto; Target Cells 2+
[2017-07-11 10:36] LABS: INR 1.53 (0.87-1.13)
--- NOTE | 2017-07-11 11:17 | Gastroenterology Progress Note ---
Assessment and Plan 1.elevated LFTs 2.cirrhosis 2.jaundice 3.abd pain 4.ETOH abuse -pt presented w/ increase LFT's and jaundice with signs cirrhosis on imaging in setting of chronic etoh use - suspect etoh hepatitis but would like to r/o biliary process - pt still considering MRCP but refusing at this point- need discussed with pt -discriminant function 59- will start on corticosteroids - watch for signs etoh withdrawal - continue other meds and diet - will need as outpt for cirrhosis - will follow Subjective Date of service: 07/11/17 Principal diagnosis: jaundice, ascites, cirrhosis Interval history: Patient resting in bed w/o acute distress. C/o some abd pain but mostly back pain with N/V x 3 episodes this am. She states she is still considering have MRCP done but discussed with hospitalist this am to see if she could have it done with her head out of MRI machine. Objective - Constitutional Vitals: Temp Pulse Resp BP Pulse Ox 98.2 F 103 H 16 108/64 92 07/11/17 08:05 07/11/17 08:05 07/11/17 08:05 07/11/17 08:05 07/11/17 08:05 General appearance: no acute distress - EENT Eyes: scleral icterus - Respiratory Respiratory: bilateral: CTA - Cardiovascular Rhythm: other (tachycardia) Heart Sounds: Present: S1 & S2 - Gastrointestinal General gastrointestinal: Present: tender (mild TTP in RUQ), distended (slightly ), normal bowel sounds, hepatomegaly - Integumentary Integumentary: Present: jaundice - Neurologic Neurological: alert and oriented x3 - Labs CBC & Chem 7: 07/11/17 07:23 07/11/17 07:23 Labs: Laboratory Results - last 24 hr 07/11/17 07/11/17 07/11/17 07:23 07:23 07:23 WBC 11.8 H RBC 2.93 L Hgb 11.3 Hct 32.6 MCV 111 H MCH 38 H MCHC 35 H RDW 19.1 H Plt Count 123 L Add Manual Diff Complete Total Counted 100 Seg Neutrophils % Chocolate Finisher Seg Neuts % (Manual) 97.0 H Band Neutrophils % 1.0 Lymphocytes % (Manual) 0 L Reactive Lymphs % (Man) 0 Monocytes % (Manual) 2.0 Eosinophils % (Manual) 0 Basophils % (Manual) 0 Metamyelocytes % 0 Myelocytes % 0 Promyelocytes % 0 Blast Cells % 0 Nucleated RBC % Not Reportable Seg Neutrophils # Man 11.4 H Band Neutrophils # 0.1 Lymphocytes # (Manual) 0.0 L Abs React Lymphs (Man) 0.0 Monocytes # (Manual) 0.2 Eosinophils # (Manual) 0.0 Basophils # (Manual) 0.0 Metamyelocytes # 0.0 Myelocytes # 0.0 Promyelocytes # 0.0 Blast Cells # 0.0 WBC Morphology Not Reportable Hypersegmented Neuts Not Reportable Hyposegmented Neuts Not Reportable Hypogranular Neuts Not Reportable Smudge Cells Not Reportable Toxic Granulation Not Reportable Toxic Vacuolation Not Reportable Dohle Bodies Not Reportable Pelger-Huet Anomaly Not Reportable Levy Rods Not Reportable Platelet Estimate Consistent w auto Clumped Platelets Not Reportable Plt Clumps, EDTA Not Reportable Large Platelets Few Giant Platelets Not Reportable Platelet Satelliting Not Reportable Plt Morphology Comment Not Reportable RBC Morphology Not Reportable Dimorphic RBCs Not Reportable Polychromasia Not Reportable Hypochromasia Not Reportable Poikilocytosis Not Reportable Anisocytosis 1+ Microcytosis Not Reportable Macrocytosis 2+ Spherocytes Not Reportable Pappenheimer Bodies Not Reportable Sickle Cells Not Reportable Target Cells 2+ Tear Drop Cells Not Reportable Ovalocytes Not Reportable Helmet Cells Not Reportable [place] Bodies Not Reportable [place] Rings Not Reportable Ben Cells Not Reportable Bite Cells Not Reportable Crenated Cell Not Reportable Elliptocytes Not Reportable Acanthocytes (Spur) Not Reportable Rouleaux Not Reportable Hemoglobin C Crystals Not Reportable Schistocytes Not Reportable Malaria parasites Not Reportable Jose Alfredo Bodies Not Reportable Hem Pathologist Commnt No PT INR Sodium 126 L Potassium 3.2 L Chloride 83.0 L Carbon Dioxide 21 L Anion Gap 25 BUN 26 H Creatinine 0.7 D Estimated GFR > 60 BUN/Creatinine Ratio 37 Glucose 68 Calcium 6.4 L Phosphorus 4.90 H D Magnesium 2.40 H Total Bilirubin 24.80 H Direct Bilirubin Indirect Bilirubin AST 384 H ALT 171 H Alkaline Phosphatase 116 Total Protein 5.7 L Albumin 2.7 L Albumin/Globulin Ratio 0.9 07/11/17 07/11/17 07:23 09:55 WBC RBC Hgb Hct MCV MCH MCHC RDW Plt Count Add Manual Diff Total Counted Seg Neutrophils % Seg Neuts % (Manual) Band Neutrophils % Lymphocytes % (Manual) Reactive Lymphs % (Man) Monocytes % (Manual) Eosinophils % (Manual) Basophils % (Manual) Metamyelocytes % Myelocytes % Promyelocytes % Blast Cells % Nucleated RBC % Seg Neutrophils # Man Band Neutrophils # Lymphocytes # (Manual) Abs React Lymphs (Man) Monocytes # (Manual) Eosinophils # (Manual) Basophils # (Manual) Metamyelocytes # Myelocytes # Promyelocytes # Blast Cells # WBC Morphology Hypersegmented Neuts Hyposegmented Neuts Hypogranular Neuts Smudge Cells Toxic Granulation Toxic Vacuolation Dohle Bodies Pelger-Huet Anomaly Levy Rods Platelet Estimate Clumped Platelets Plt Clumps, EDTA Large Platelets Giant Platelets Platelet Satelliting Plt Morphology Comment RBC Morphology Dimorphic RBCs Polychromasia Hypochromasia Poikilocytosis Anisocytosis Microcytosis Macrocytosis Spherocytes Pappenheimer Bodies Sickle Cells Target Cells Tear Drop Cells Ovalocytes Helmet Cells Farah-[place] Bodies [place] Rings Ben Cells Bite Cells Crenated Cell Elliptocytes Acanthocytes (Spur) Rouleaux Hemoglobin C Crystals Schistocytes Malaria parasites Jose Alfredo Bodies Hem Pathologist Commnt PT 19.3 H INR 1.53 H Sodium Potassium Chloride Carbon Dioxide Anion Gap BUN Creatinine Estimated GFR BUN/Creatinine Ratio Glucose Calcium Phosphorus Magnesium Total Bilirubin 25.00 H Direct Bilirubin 16.5 H Indirect Bilirubin 8.5 AST 380 H ALT 169 H Alkaline Phosphatase 113 Total Protein 5.6 L Albumin 2.7 L Albumin/Globulin Ratio 0.9
[2017-07-11] MEDS: K-DUR PO SCH ×2 (11:25→15:54)
[2017-07-11] MEDS: NACL 0.9% 1000 ML 1,000 ML IV SCH ×2 (11:27→21:26)
[2017-07-11] MEDS: TRENTAL PO SCH ×2 (15:48→21:26)
[2017-07-11] MEDS: ATIVAN IV PRN (21:39)
[2017-07-12] MEDS: NITRO-BID 2% TP SCH ×6 (01:09→18:10)
[2017-07-12] MEDS: ZOFRAN IV PRN (04:08)
[2017-07-12] MEDS: NACL 0.9% 1000 ML 1,000 ML IV SCH ×2 (04:08→14:20)
[2017-07-12] MEDS: TRENTAL PO SCH ×3 (07:18→23:07)
[2017-07-12 08:42] LABS: BUN/Creatinine Ratio 37; Blood Urea Nitrogen 33 mg/dL (7-17); Calcium 6.2 mg/dL (8.4-10.2); Hemolysis Index 106
[2017-07-12] MEDS: ASPIRIN PO SCH (09:27)
[2017-07-12] MEDS: HEPARIN SUB-Q SCH (09:27)
[2017-07-12] MEDS: ATIVAN IV PRN (10:00)
[2017-07-12 10:19] LABS: Albumin 2.6 g/dL (3.9-5)
--- NOTE | 2017-07-12 10:26 | Consultation ---
History of Present Illness - Reason for Consult Consult date: 07/12/17 hyponatremia, hyperkalemia, metabolic acidosis - History of Present Illness Mrs. Mooney is a 51yo female who presented to the ED with a two day history of nausea, vomiting and diarrhea w/ inabilty to tolerate po. Symptoms were followed by dizziness and syncope. In addition, she reports right side chest pain, RUQ, epigastric pain. Labs at admission, notable for TBili 16.5, Na 125 and K 2.4. Past History Past Medical History: arthritis, other (anxiety, swine flu (2010), bronchitis) Past Surgical History: (x2), hysterectomy (partial) Social history: smoking, alcohol abuse Medications and Allergies Allergies Allergy/AdvReac Type Severity Reaction Status Date / Time No Known Allergies Allergy Unverified 07/08/17 14:11 Home Medications Medication Instructions Recorded Confirmed Last Taken Type ALBUTEROL Inhaler(NF) [VENTOLIN 1 puff IH BID PRN 07/12/17 07/12/17 07/09/17 History Inhaler(NF)] Active Meds: Active Medications Acetaminophen (Tylenol) 650 mg PO Q4H PRN PRN Reason: For Pain/Fever/Headache Albuterol (Proventil) 2.5 mg IH Q4HRT PRN PRN Reason: Shortness Of Breath Aspirin (Aspirin) 325 mg PO QDAY JOSEFINA Last Admin: 07/12/17 09:27 Dose: 325 mg Heparin Sodium (Porcine) (Heparin) 5,000 unit SUB-Q Q12HR JOSEFINA Last Admin: 07/12/17 09:27 Dose: 5,000 unit Hydromorphone HCl (Dilaudid) 0.5 mg IV Q4H PRN PRN Reason: Pain Last Admin: 07/11/17 20:24 Dose: 0.5 mg Sodium Chloride (Nacl 0.9% 1000 Ml) 1,000 mls @ 125 mls/hr IV DIRECT JOSEFINA Last Admin: 07/12/17 04:08 Dose: 125 mls/hr Lorazepam (Ativan) 4 mg IV Q15MIN PRN PRN Reason: CIWA-Ar >25 Lorazepam (Ativan) 2 mg IV Q1H PRN PRN Reason: CIWA-Ar 8-15 Last Admin: 07/12/17 10:00 Dose: 2 mg Lorazepam (Ativan) 4 mg IV Q1H PRN PRN Reason: CIWA-Ar 16-25 Nitroglycerin (Nitro-Bid 2%) 0.5 inch TP QIDNTG JOSEFINA PRN Reason: Protocol Last Admin: 07/12/17 09:25 Dose: 0.5 inch Ondansetron HCl (Zofran) 4 mg IV Q4H PRN PRN Reason: Nausea And Vomiting Last Admin: 07/12/17 04:08 Dose: 4 mg Pentoxifylline (Trental) 400 mg PO Q8HR [facility] Last Admin: 07/12/17 07:18 Dose: 400 mg Review of Systems ROS unobtainable: due to mental status Exam - Vital Signs Vital signs: Vital Signs Temp Pulse Resp BP Pulse Ox 97.5 F L 101 H 16 107/65 100 07/08/17 14:06 07/08/17 14:06 07/08/17 14:06 07/08/17 14:06 07/08/17 14:06 - General Appearance General appearance: other (Jaundiced) EENT: mucous membranes dry Respiratory: Clear to Ascultation Heart: regular, S1S2 Gastrointestinal: Present: distended Integumentary: no rash, warm and dry Neurologic: other (slow to respond to questions) Musculoskeletal: Present: other (+edema) Psychiatric: cooperative Results - Lab Results 07/11/17 07:23 07/12/17 07:48 Most recent lab results Calcium 6.2 mg/dL (8.4-10.2) L 07/12/17 07:48 Phosphorus 4.90 mg/dL (2.5-4.5) H D 07/11/17 07:23 Magnesium 2.40 mg/dL (1.7-2.3) H 07/11/17 07:23 Assessment and Plan Impression * Hyponatremia - secondary to ADH release in cirrhosis * Hyperkalemia,mild - iatrogenic * Metabolic acidosis * Abnormal LFTS * Probable alcohol hepatitis * Alcohol abuse * Coagulopathy Plan: * Patient is not a candidate for Samsca in light of liver disease * Obtain TSH, UOsm, SOsm and Margarita * Restrict fluid intake to 1 liter/day * Start NaBicarb tablets * Change IVF to NaBicarb gtt, decrease rate to 75ml/hour to avoid fluid overload * Recommend repeating NH4 - last checked on Jul 09 * GI following - note recommendation for MRCP but patient is refusing * Diet per GI - currently on clear liquid * Repeat BMP at 1500
[2017-07-12 10:33] LABS: Bilirubin,Direct 16.9 mg/dL (0-0.2)
--- NOTE | 2017-07-12 10:36 | Progress Note ---
Assessment and Plan Assessment and plan: Jaundiced. GI Physician evaluation ongoing. MRCP Abdomnen ordered. Patient states she cannot do MRCP because of claustrophobia Elevated LFT. Ongoing evaluation Possible cirrhosis of liver. For MRCP Abdomen. GI Physician following. Nausea and vomiting. Zofran iv prn Alcohol abuse. Advised against alcohol Metabolic acidosis. Consult Nephrology Hyponatremia likely due to cirrhosis. Sodium 124 today. Consulted and discussed with Nephrology Hypokalemia. Potassium 3.2. Give k-dur orally Hypomagnesemia. Resolved after replacement Hypophosphatemia. Resolved after replacement. History Interval history: Abdominal pain, syncope nausea and vomiting jaundice Claustrophobia so cannot do MRCP Hospitalist Physical - Physical exam Narrative exam: GEN APPEARANCE : Not in acute distress,jaundiced HEENT: Normocephalic, Atraumatic NECK : supple, no JVD LUNGS: Clear to auscultation bilaterally, no rales, no wheeze HEART: S1 and S2 regular, no murmurs, rubs or gallop, ABD: Soft, non tender, distended, normal bowel sounds EXT:No edema, no clubbing, no cyanosis NEURO: Awake, alert,oriented x 3, no focal signs Psych:Normal mood - Constitutional Vitals: Temp Pulse Resp BP Pulse Ox 97.9 F 101 H 20 123/78 95 07/11/17 21:19 07/12/17 05:13 07/11/17 21:30 07/12/17 05:13 07/12/17 05:13 Results - Labs CBC & Chem 7: 07/11/17 07:23 07/12/17 07:48 Labs: Laboratory Last Values WBC 11.8 K/mm3 (4.5-11.0) H 07/11/17 07:23 RBC 2.93 M/mm3 (3.65-5.03) L 07/11/17 07:23 Hgb 11.3 gm/dl (10.1-14.3) 07/11/17 07:23 Hct 32.6 % (30.3-42.9) 07/11/17 07:23 MCV 111 fl (79-97) H 07/11/17 07:23 MCH 38 pg (28-32) H 07/11/17 07:23 MCHC 35 % (30-34) H 07/11/17 07:23 RDW 19.1 % (13.2-15.2) H 07/11/17 07:23 Plt Count 123 K/mm3 (140-440) L 07/11/17 07:23 Lymph % (Auto) 9.2 % (13.4-35.0) L 07/10/17 05:06 [place] % (Auto) 3.6 % (0.0-7.3) 07/10/17 05:06 Eos % (Auto) 0.8 % (0.0-4.3) 07/10/17 05:06 Baso % (Auto) 0.2 % (0.0-1.8) 07/10/17 05:06 Lymph # 1.1 K/mm3 (1.2-5.4) L 07/10/17 05:06 [place] # 0.4 K/mm3 (0.0-0.8) 07/10/17 05:06 Eos # 0.1 K/mm3 (0.0-0.4) 07/10/17 05:06 Baso # 0.0 K/mm3 (0.0-0.1) 07/10/17 05:06 Add Manual Diff Complete 07/11/17 07:23 Total Counted 100 07/11/17 07:23 Seg Neutrophils % Instructor Physical 07/11/17 07:23 Seg Neuts % (Manual) 97.0 % (40.0-70.0) H 07/11/17 07:23 Band Neutrophils % 1.0 % 07/11/17 07:23 Lymphocytes % (Manual) 0 % (13.4-35.0) L 07/11/17 07:23 Reactive Lymphs % (Man) 0 % 07/11/17 07:23 Monocytes % (Manual) 2.0 % (0.0-7.3) 07/11/17 07:23 Eosinophils % (Manual) 0 % (0.0-4.3) 07/11/17 07:23 Basophils % (Manual) 0 % (0.0-1.8) 07/11/17 07:23 Metamyelocytes % 0 % 07/11/17 07:23 Myelocytes % 0 % 07/11/17 07:23 Promyelocytes % 0 % 07/11/17 07:23 Blast Cells % 0 % 07/11/17 07:23 Nucleated RBC % Not Reportable 07/11/17 07:23 Seg Neutrophils # 10.3 K/mm3 (1.8-7.7) H 07/10/17 05:06 Seg Neutrophils # Man 11.4 K/mm3 (1.8-7.7) H 07/11/17 07:23 Band Neutrophils # 0.1 K/mm3 07/11/17 07:23 Lymphocytes # (Manual) 0.0 K/mm3 (1.2-5.4) L 07/11/17 07:23 Abs React Lymphs (Man) 0.0 K/mm3 07/11/17 07:23 Monocytes # (Manual) 0.2 K/mm3 (0.0-0.8) 07/11/17 07:23 Eosinophils # (Manual) 0.0 K/mm3 (0.0-0.4) 07/11/17 07:23 Basophils # (Manual) 0.0 K/mm3 (0.0-0.1) 07/11/17 07:23 Metamyelocytes # 0.0 K/mm3 07/11/17 07:23 Myelocytes # 0.0 K/mm3 07/11/17 07:23 Promyelocytes # 0.0 K/mm3 07/11/17 07:23 Blast Cells # 0.0 K/mm3 07/11/17 07:23 WBC Morphology Not Reportable 07/11/17 07:23 Hypersegmented Neuts Not Reportable 07/11/17 07:23 Hyposegmented Neuts Not Reportable 07/11/17 07:23 Hypogranular Neuts Not Reportable 07/11/17 07:23 Smudge Cells Not Reportable 07/11/17 07:23 Toxic Granulation Not Reportable 07/11/17 07:23 Toxic Vacuolation Not Reportable 07/11/17 07:23 Dohle Bodies Not Reportable 07/11/17 07:23 Pelger-Huet Anomaly Not Reportable 07/11/17 07:23 Levy Rods Not Reportable 07/11/17 07:23 Platelet Estimate Consistent w auto 07/11/17 07:23 Clumped Platelets Not Reportable 07/11/17 07:23 Plt Clumps, EDTA Not Reportable 07/11/17 07:23 Large Platelets Few 07/11/17 07:23 Giant Platelets Not Reportable 07/11/17 07:23 Platelet Satelliting Not Reportable 07/11/17 07:23 Plt Morphology Comment Not Reportable 07/11/17 07:23 RBC Morphology Not Reportable 07/11/17 07:23 Dimorphic RBCs Not Reportable 07/11/17 07:23 Polychromasia Not Reportable 07/11/17 07:23 Hypochromasia Not Reportable 07/11/17 07:23 Poikilocytosis Not Reportable 07/11/17 07:23 Anisocytosis 1+ 07/11/17 07:23 Microcytosis Not Reportable 07/11/17 07:23 Macrocytosis 2+ 07/11/17 07:23 Spherocytes Not Reportable 07/11/17 07:23 Pappenheimer Bodies Not Reportable 07/11/17 07:23 Sickle Cells Not Reportable 07/11/17 07:23 Target Cells 2+ 07/11/17 07:23 Tear Drop Cells Not Reportable 07/11/17 07:23 Ovalocytes Not Reportable 07/11/17 07:23 Helmet Cells Not Reportable 07/11/17 07:23 Farah-Chancellor Bodies Not Reportable 07/11/17 07:23 [place] Rings Not Reportable 07/11/17 07:23 Ben Cells Not Reportable 07/11/17 07:23 Bite Cells Not Reportable 07/11/17 07:23 Crenated Cell Not Reportable 07/11/17 07:23 Elliptocytes Not Reportable 07/11/17 07:23 Acanthocytes (Spur) Not Reportable 07/11/17 07:23 Rouleaux Not Reportable 07/11/17 07:23 Hemoglobin C Crystals Not Reportable 07/11/17 07:23 Schistocytes Not Reportable 07/11/17 07:23 Malaria parasites Not Reportable 07/11/17 07:23 Jose Alfredo Bodies Not Reportable 07/11/17 07:23 Hem Pathologist Commnt No 07/11/17 07:23 PT 19.3 Sec. (12.2-14.9) H 07/11/17 09:55 INR 1.53 (0.87-1.13) H 07/11/17 09:55 Sodium 124 mmol/L (137-145) L 07/12/17 07:48 Potassium 5.1 mmol/L (3.6-5.0) H D 07/12/17 07:48 Chloride 84.4 mmol/L (98-107) L 07/12/17 07:48 Carbon Dioxide 11 mmol/L (22-30) L D 07/12/17 07:48 Anion Gap 34 mmol/L 07/12/17 07:48 BUN 33 mg/dL (7-17) H 07/12/17 07:48 Creatinine 0.9 mg/dL (0.7-1.2) 07/12/17 07:48 Estimated GFR > 60 ml/min 07/12/17 07:48 BUN/Creatinine Ratio 37 % 07/12/17 07:48 Glucose 97 mg/dL (65-100) 07/12/17 07:48 Calcium 6.2 mg/dL (8.4-10.2) L 07/12/17 07:48 Phosphorus 4.90 mg/dL (2.5-4.5) H D 07/11/17 07:23 Magnesium 2.40 mg/dL (1.7-2.3) H 07/11/17 07:23 Iron 146 ug/dL (37-170) 07/09/17 17:56 TIBC 134 mcg/dL (250-450) L 07/09/17 17:56 Ferritin 845.5 ng/mL (13.0-400.0) H 07/09/17 17:56 Total Bilirubin 28.70 mg/dL (0.1-1.2) H 07/12/17 07:48 Direct Bilirubin 16.9 mg/dL (0-0.2) H 07/12/17 07:48 Indirect Bilirubin 11.8 mg/dL 07/12/17 07:48 AST 402 units/L (5-40) H 07/12/17 07:48 ALT 199 units/L (7-56) H 07/12/17 07:48 Alkaline Phosphatase 116 units/L (35-129) 07/12/17 07:48 Ammonia 54.0 umol/L (25-60) 07/09/17 00:47 Total Creatine Kinase 67 units/L (30-135) 07/09/17 10:45 CK-MB (CK-2) 2.0 ng/mL (0.0-4.0) 07/09/17 10:45 CK-MB (CK-2) Rel Index 2.9 (0-4) 07/09/17 10:45 Troponin T < 0.010 ng/mL (0.00-0.029) 07/09/17 10:45 Total Protein 5.9 g/dL (6.3-8.2) L 07/12/17 07:48 Albumin 2.6 g/dL (3.9-5) L 07/12/17 07:48 Albumin/Globulin Ratio 0.8 % 07/12/17 07:48 Lipase 36 units/L (13-60) 07/09/17 00:47 Hepatitis A IgM Ab Non-reactive (NonReactive) 07/09/17 17:56 Hep Bs Antigen Non-reactive (Negative) 07/09/17 17:56 Hep B Core IgM Ab Non-reactive (NonReactive) 07/09/17 17:56 Hepatitis C Antibody Non-reactive (NonReactive) 07/09/17 17:56
[2017-07-12] MEDS ORDERED: KIONEX PO ONE (11:00)
--- NOTE | 2017-07-12 11:44 | Gastroenterology Progress Note ---
Assessment and Plan 1.elevated LFTs 2.cirrhosis 2.jaundice 3.abd pain 4.ETOH abuse -pt presented w/ increase LFT's and jaundice with signs cirrhosis on imaging in setting of chronic etoh use - suspect etoh hepatitis but would like to r/o biliary process, however pt refusing MRCP -discriminant function 59 yesterday and was started on Trental - LFT trending up this am -clinically pt more somnolent this am with c/o continued abd and back pain -N/V x 3 episodes this am with noted hematemesis -etiology unclear- possible M-W tear vs varices -currently HD stable -continue to monitor H/H and transfuse as needed -hold blood thinning medications -start on Octreotide gtt and PPI -ammonia level stat -PT/INR stat -NPO now -will schedule for EGD today -hold narcotics and benzodiazepines -watch for signs of ETOH withdrawal -electrolyte management per primary team -continue supportive care -will follow Subjective Date of service: 07/12/17 Principal diagnosis: jaundice, ascites, cirrhosis Interval history: Patient noted to be increasingly more somnolent this morning. She c/o continued abd and back pain with N/V x 3 episodes this am with scant amount of hematemesis. Objective - Constitutional Vitals: Temp Pulse Resp BP Pulse Ox 97.9 F 101 H 20 123/78 95 07/11/17 21:19 07/12/17 05:13 07/11/17 21:30 07/12/17 05:13 07/12/17 05:13 General appearance: mild distress, other (somnolent) - EENT Eyes: scleral icterus - Respiratory Respiratory: bilateral: CTA - Cardiovascular Rhythm: other (tachycardia) Heart Sounds: Present: S1 & S2 - Gastrointestinal General gastrointestinal: Present: tender (RUQ), distended, hypoactive bowel sounds, hepatomegaly - Integumentary Integumentary: Present: jaundice - Labs CBC & Chem 7: 07/11/17 07:23 07/12/17 07:48 Labs: Laboratory Results - last 24 hr 07/10/17 07/12/17 07/12/17 05:54 07:48 07:48 Sodium 124 L Potassium 5.1 H D Chloride 84.4 L Carbon Dioxide 11 L D Anion Gap 34 BUN 33 H Creatinine 0.9 Estimated GFR > 60 BUN/Creatinine Ratio 37 Glucose 97 Calcium 6.2 L Total Bilirubin 28.70 H Direct Bilirubin 16.9 H Indirect Bilirubin 11.8 AST 402 H ALT 199 H Alkaline Phosphatase 116 Total Protein 5.9 L Albumin 2.6 L Albumin/Globulin Ratio 0.8 Actin IgG Antibody <20
[2017-07-12] MEDS ORDERED: PROVENTIL IH PRN (12:00)
[2017-07-12] MEDS ORDERED: PROTONIX IV SCH (12:00)
[2017-07-12 13:31] LABS: INR 1.63 (0.87-1.13)
[2017-07-12] MEDS: SODIUM BICARBONATE PO SCH ×2 (13:34→23:08)
--- NOTE | 2017-07-12 15:12 | Anesthesia Consultation ---
Anesthesia Consult and Med Hx Date of service: 07/12/17 - Airway Anesthetic Teeth Evaluation: Poor ROM Head & Neck: Adequate Mental/Hyoid Distance: Adequate Mallampati Class: Class III Intubation Access Assessment: Probably Good - Pulmonary Exam CTA: Yes (very shallow and labored) - Cardiac Exam Cardiac Exam: No Murmur - Pre-Operative Health Status ASA Pre-Surgery Classification: ASA4 Proposed Anesthetic Plan: IV Sedation - Pulmonary Hx Smoking: Yes SOB: Yes COPD: Yes Home Oxygen Therapy: No (But presently on Nasal cannula oxygen) - Cardiovascular System Hx Angina: Yes (Not sure, patient presently with NTG patch) - Central Nervous System Hx Back Pain: Yes - Hematic Hx Anemia: Yes - Other Systems Hx Alcohol Use: Yes - Additional Comments Anesthesia Medical History Comments: Patient is very jaundice and very weak and unable to answer questions. Questions mostly answered by boyfriend and son. Patient has blood around mouth from vomiting.
--- NOTE | 2017-07-12 15:47 | Anesthesia Day of Surgery ---
Anesthesia Day of Surgery - Day of Surgery Patient Examined: Yes Patient H&P Reviewed: Yes Patient is NPO: Yes Beta Blockers: Yes Cardiac Clearance: Yes Pulmonary Clearance: Yes
--- NOTE | 2017-07-12 17:44 | Post Operative Note ---
Pre-op diagnosis: biliary obstruction Post-op diagnosis: same Findings: ERCP: bulging ampullae noted - difficult procedure - noted dilated pancreatic duct - despite multiple attempts including pre-cut sphinterotomy unable to cannulate cbd - procedure terminated Procedure: ERCP Anesthesia: MAC Surgeon: JAILYN BRYAN Estimated blood loss: none Pathology: none Specimen disposition: to lab Condition: stable Disposition: floor
[2017-07-12] MEDS ORDERED: WATER FOR IRRIG STERILE IR ONE (17:48)
[2017-07-12] MEDS ORDERED: DIPRIVAN 10 MG/ML IV ONE ×2 (17:53)
[2017-07-12] MEDS ORDERED: NACL 0.9% 100 ML ONE (17:56)
[2017-07-12] MEDS ORDERED: ADRENALIN IV ONE (18:29)
[2017-07-12] MEDS ORDERED: ADRENALIN ONE (18:29)
[2017-07-12] MEDS ORDERED: NACL 0.9% 500 ML 500 ML IV NR ×2 (18:39→20:47)
--- NOTE | 2017-07-12 18:40 | Post Operative Note ---
Date of procedure: 07/12/17 Pre-op diagnosis: gi bleed Post-op diagnosis: same Findings: EGD: erosive esophagitis distal esophagus with erythema - moderate scattered gastritis - small amount blood stomach - nl duodenum - active bleeding distal esophagus after bx (apporx total 600-700cc) - epi 1:10k 8 cc applied, pt intubated by anaesthesiology for airway protection - vital signs stable during procedure istat hgb 10.9 - pt lost tooth during procedure with fair amount bleeding after Procedure: EGD Anesthesia: MAC Surgeon: JAILYN BRYAN Estimated blood loss: none Pathology: list Condition: critical Disposition: ICU (complication as noted above)
[2017-07-12] MEDS ORDERED: NACL 0.9% 1000 ML 1,000 ML ONE (19:06)
[2017-07-12 19:14] LABS: Hematocrit 29.4 % (30.3-42.9); Mean Corpuscular HGB Conc 34 % (30-34); Mean Corpuscular Hemoglobin 39 pg (28-32); Mean Corpuscular Volume 114 fl (79-97); Platelet Count 193 K/mm3 (140-440); Red Blood Count 2.58 M/mm3 (3.65-5.03); Red Cell Distribution Width 19.6 % (13.2-15.2)
[2017-07-12 19:24] LABS: INR 1.81 (0.87-1.13)
[2017-07-12 19:25] LABS: Partial Thromboplastin Time 50.1 Sec. (24.2-36.6)
[2017-07-12 19:35] LABS: Albumin 3.1 g/dL (3.9-5); Calcium 6.1 mg/dL (8.4-10.2)
[2017-07-12] MEDS ORDERED: NEO SYNEPHRINE/NS Syringe(OR USE) IV ONE (19:38)
--- NOTE | 2017-07-12 20:15 | XRay Report ---
FINAL REPORT EXAM: XR ABDOMEN 2V HISTORY: POSS PERFORATION TECHNIQUE: Supine portable view of the abdomen and upright view of the abdomen were performed FINDINGS: There is patchy left basal infiltrate. There is coarsening of the interstitial markings. Air-filled distended stomach and small bowel. Bowel pattern compatible with small bowel obstruction. There is an ill-defined density projecting at the level the gastric fundus which may represent debris in the stomach, bezoar, or much less likely gastric pneumatosis. Abnormal jejunal loop in the left mid abdomen with sponge like appearance which may represent pneumatosis of the posterior wall versus fecalization of the contents. No definite free air identified. No Rigler's sign. No deep costophrenic sulcus. IMPRESSION: Abnormal bowel-gas pattern suggestive of small-bowel obstruction. Distended flanks. Ill-defined irregular density at the region of the gastric fundus which may represent debris, gastric bezoar, much less likely gastric pneumatosis. There is one irregular proximal jejunal loop with questionable pneumatosis. Left lower lobe ill-defined infiltrate. Critical result. No shahab free gas but questionable pneumatosis and abnormal small bowel pattern. Findings are called on 07/12/2017 at 2009 hours and discussed with the referring clinician. Recommend CT abdomen and pelvis.
[2017-07-12] MEDS ORDERED: GELFOAM TP ONE (20:33)
[2017-07-12] MEDS: SandoSTATIN 500 MCG in NACL 0.9% 100 ML IV SCH (21:07)
[2017-07-12] MEDS ORDERED: SODIUM BICARBONATE IV ONE (22:56)
--- NOTE | 2017-07-12 23:11 | Operative Report ---
ERCP PROCEDURE NOTE INDICATION: 1. Increased liver function tests. 2. Biliary obstruction. MEDICATIONS: Propofol per BRAND EXECUTIVE. COMPLICATIONS: None. DESCRIPTION OF PROCEDURE: The patient was brought to procedure suite. The patient had the procedure discussed with her at length. All risks, complications, and benefits discussed after which the patient signed for the procedure to be performed. The patient was placed in left lateral decubitus position. Mouth block was placed in the patient's oral cavity. After adequate sedation medication as above, ERCP scope was introduced into the mouth and brought to the level of the second portion of duodenum. Retroflexion view was performed. The patient's vital signs remained stable throughout the procedure. FINDINGS: The esophagus and stomach appeared grossly normal. There was a somewhat bulging ampulla noted in the second portion of duodenum. The sphincterotome was then inserted. This was a difficult procedure. A pancreatogram was gotten multiple times, which showed a dilated pancreatic duct approximately 5-6 mm. Despite multiple attempts including the use of a precut sphincterotomy, we were unable to cannulate the common bile duct. No further interventions were performed. The patient tolerated the procedure well. No complications during the procedure. IMPRESSION: 1. Normal appearing esophagus and stomach. 2. Bulging ampulla. 3. Dilated pancreatic duct. 4. Despite multiple attempts, unable to cannulate common bile duct. RECOMMENDATIONS: 1. Follow labs. 2. Avoid NSAIDs and aspirin. 3. We will consider repeat ERCP versus PTC. We will discuss with Dr. Severino. 4. We will follow. JOB# [id number] CAB/NTS
--- NOTE | 2017-07-13 00:52 | Operative Report ---
EGD PROCEDURE NOTE INDICATION: 1. Coffee emesis. 2. Anemia. MEDICATIONS: Propofol per VETERINARY PHARMACOLOGIST. COMPLICATIONS LISTED BELOW: 1. Gastrointestinal bleed. 2. Intubation. DESCRIPTION OF PROCEDURE: The patient was brought to the procedure suite. The patient had the procedure discussed with her at length. All risks, complications and benefits discussed after which the patient signed for the procedure performed. The patient was placed in left lateral decubitus position. Mouth block was placed in the patient's oral cavity. After adequate sedation with medication as above, endoscope was introduced into the mouth and brought to level of the second portion of duodenum. Retroflexion view was performed. The patient's vital signs remained stable throughout the procedure. FINDINGS: There was noted to be moderate erosive esophagitis noted at the distal esophagus 40 cm from the gums. Medium hiatal hernia at GE junction. The esophagus; otherwise, appeared grossly benign. No significant varices were noted. There was noted to be moderate scattered ulcerations noted throughout the stomach. It should be noted there was a small amount of coffee material noted in the proximal stomach that was suctioned and removed. There was noted to be mild erythema and ulceration scattered throughout the stomach. Mild gastritis noted. Stomach otherwise appeared to be normal. Duodenum appeared to be normal. Retroflexion showed no other pathology. After this inspection, biopsies x 2 were taken of the inflamed erosive distal esophageal area. Moderate profuse bleeding then ensued from these areas. This led to the injection of a total of 8 mL of epinephrine 1:10,000 dilution. Given the size of active bleeding with anesthesia present throughout the procedure, the decision was made to intubate the patient. The patient had lost approximately 507 mL of blood throughout the procedure. The patient's vital signs remained stable throughout the procedure. During intubation and other process, the patient lost a tooth. It should be noted that there was moderate bleeding from the area of the tooth loss, which also was unexpected. This area was packed to stop the bleeding from that area. No further interventions were performed. The patient had no other findings. IMPRESSION: 1. Erosive esophagitis status post biopsy with noted bleeding requiring intubation and bleeding therapy as noted above. 2. Hiatal hernia. 3. Erythema and inflammation in the stomach. 4. Coffee ground material noted in the stomach status post removal. 5. Normal duodenum. 6. The patient lost tooth during the procedure with bleeding from that area, which was stopped. RECOMMENDATIONS: 1. We will admit to ICU. 2. PPI IV drip. 3. Octreotide. 4. N.p.o. 5. I have had long discussions with the patient's son and significant other regarding situation. 6. We will follow closely. JOB# [id number] CAB/NTS
--- NOTE | 2017-07-13 01:49 | Post Anesthesia Evaluation ---
- Post Anesthesia Evaluation Patient Participated: No Airway Patent: Yes Stable Respiratory Function: No Temp > 96.8F: Yes Anesthesia Complications: No Patient on Ventilator: Yes Other Comments: While reviewing charts for completion, it appears that I completed this portion while working with another patient. Please reject the information listed below. I was assisting with induction in the main OR when a call came to report to the GI lab JV. I found one general office assistant preparing for a next case and asked him why there was an urgency in the area. He took me to the room of which the procedure was ongoing. The patient was tachycardic and the scope image demonstrated what looked to me like a clot. There was blood in the oral cavity. We started preparing for GETA. Corrected the BP cuff and replaced the pulse ox (multiple times). Suction of the oral cavity produced copious amounts of fresh blood. Changed from normal hard suction tube to soft suction tube. Provided medication as per record to facilitate the intubation. When entered the oral cavity of which we encountered what turned out to be a removable partial plate of which we carefully removed. Suction continued while placing ETT. Suction of blood from the ETT. Manual ventilation. Breath sounds equal bilat. Requested the ordering of labs and I Stat. Continued to seek the source of blood. Appeared to be from a tooth of which was only partially attached. It was removed from the mouth for patient protection. The socket of the tooth was previously bleeding and continued to bleed. Multiple pressure packs placed with minimal success in stopping the blood flow. We prepared for transport and transported the patient to the ICU. Report was given. I returned to the ICU around 0100 hours. The patient's vital signs were reasonable in consideration. The patient appeared to be responding to the family present. The blood appeared to continue to escape from the oral cavity. Use of a flash light with minimal movement of the the lips did not reveal a source of blood. Clots found but were not disturbed. I talked with the family.
[2017-07-13] MEDS ORDERED: NACL 0.9% 500 ML 500 ML IV ONE ×5 (01:54→12:37)
[2017-07-13] MEDS ORDERED: NACL 0.9% 1000 ML 1,000 ML IV ONE ×2 (01:57→09:39)
[2017-07-13 02:58] LABS: Calcium 5.2 mg/dL (8.4-10.2)
[2017-07-13] MEDS: NITRO-BID 2% TP SCH ×2 (02:59→11:23)
[2017-07-13 03:12] LABS: Mean Corpuscular HGB Conc 35 % (30-34); Mean Corpuscular Hemoglobin 39 pg (28-32); Mean Corpuscular Volume 111 fl (79-97); Platelet Count 146 K/mm3 (140-440); Red Blood Count 1.43 M/mm3 (3.65-5.03)
[2017-07-13 03:18] LABS: Hematocrit 15.9 % (30.3-42.9); Hemoglobin 5.5 gm/dl (10.1-14.3)
[2017-07-13] MEDS: NACL 0.9% 1000 ML 1,000 ML IV SCH ×2 (08:53→13:39)
[2017-07-13] MEDS ORDERED: INTROPIN DRIP 800 MG/D5W 250 ML 800 MG/250 ML BAG IV SCH (09:00)
--- NOTE | 2017-07-13 09:25 | XRay Report ---
AP CHEST: HISTORY: Follow up respiratory failure Compared to 07/08/17. An endotracheal tube has been inserted which terminates at the level of the clavicles 6 cm superior to the estelita. The lungs are clear. No pleural effusion or pneumothorax. Heart and mediastinal structures are within normal limits. IMPRESSION: No acute cardiopulmonary process is identified. Endotracheal tube as described.
--- NOTE | 2017-07-13 09:38 | Progress Note ---
Assessment and Plan Assessment and plan: Jaundiced. GI Physician evaluation ongoing. MRCP Abdomen ordered. Patient states she cannot do MRCP because of claustrophobia Acute GI bleed, hematemesis. EGD done yesterday showed erosive esophagitis, active bleeding. She was started on Protonix drip, Octreotide drip, intubated and transferred to ICU. Hgb 5.5. Two Units PRBC ordered. Will transfuse 2 more Units. Hypovolemic shock. Give further NS boluses. Dopamine drip ordered. Central line placement ordered. Elevated LFT. Ongoing evaluation Possible cirrhosis of liver. For MRCP Abdomen. GI Physician following. Nausea and vomiting. Zofran iv prn Alcohol abuse. Advised against alcohol Metabolic acidosis. Consulted Nephrology, put on Bicarb Hyponatremia likely due to cirrhosis. Sodium improving,134 today, was 124 yesterday. Consulted and discussed with Nephrology yesterday Hypokalemia. now resolved. Hypomagnesemia. Now resolved after replacement Hypophosphatemia. Resolved after replacement. Discussed with family. Poor prognosis History Interval history: Patient presented with abdominal pain, nausea,vomiting,jaundice. had hematemesis yesterday, EGD done yesterday, Intubated transfered to ICU Hospitalist Physical - Physical exam Narrative exam: GEN APPEARANCE : Not in acute distress,jaundiced, Intubated HEENT: Normocephalic, Atraumatic NECK : supple, no JVD LUNGS: Clear to auscultation bilaterally, no rales, no wheeze HEART: S1 and S2 regular, no murmurs, rubs or gallop, ABD: Soft, non tender, distended, normal bowel sounds EXT:No edema, no clubbing, no cyanosis NEURO: Intubated, sedated - Constitutional Vitals: Temp Pulse Resp BP Pulse Ox 96 F L 89 23 90/58 99 07/13/17 09:00 07/13/17 09:15 07/13/17 09:15 07/13/17 09:15 07/13/17 09:15 Results - Labs CBC & Chem 7: 07/13/17 02:00 07/13/17 02:00 Labs: Laboratory Last Values WBC 14.1 K/mm3 (4.5-11.0) H 07/13/17 02:00 RBC 1.43 M/mm3 (3.65-5.03) L 07/13/17 02:00 Hgb 5.5 gm/dl (10.1-14.3) L* D 07/13/17 02:00 POC Hgb 10.9 (12-17) L 07/12/17 18:58 Hct 15.9 % (30.3-42.9) L* D 07/13/17 02:00 POC Hct 32 (38-51) L 07/12/17 18:58 MCV 111 fl (79-97) H 07/13/17 02:00 MCH 39 pg (28-32) H 07/13/17 02:00 MCHC 35 % (30-34) H 07/13/17 02:00 RDW 20.0 % (13.2-15.2) H 07/13/17 02:00 Plt Count 146 K/mm3 (140-440) 07/13/17 02:00 Lymph % (Auto) 9.2 % (13.4-35.0) L 07/10/17 05:06 [place] % (Auto) 3.6 % (0.0-7.3) 07/10/17 05:06 Eos % (Auto) 0.8 % (0.0-4.3) 07/10/17 05:06 Baso % (Auto) 0.2 % (0.0-1.8) 07/10/17 05:06 Lymph # 1.1 K/mm3 (1.2-5.4) L 07/10/17 05:06 [place] # 0.4 K/mm3 (0.0-0.8) 07/10/17 05:06 Eos # 0.1 K/mm3 (0.0-0.4) 07/10/17 05:06 Baso # 0.0 K/mm3 (0.0-0.1) 07/10/17 05:06 Add Manual Diff Complete 07/11/17 07:23 Total Counted 100 07/11/17 07:23 Seg Neutrophils % Investigation Specialist 07/11/17 07:23 Seg Neuts % (Manual) 97.0 % (40.0-70.0) H 07/11/17 07:23 Band Neutrophils % 1.0 % 07/11/17 07:23 Lymphocytes % (Manual) 0 % (13.4-35.0) L 07/11/17 07:23 Reactive Lymphs % (Man) 0 % 07/11/17 07:23 Monocytes % (Manual) 2.0 % (0.0-7.3) 07/11/17 07:23 Eosinophils % (Manual) 0 % (0.0-4.3) 07/11/17 07:23 Basophils % (Manual) 0 % (0.0-1.8) 07/11/17 07:23 Metamyelocytes % 0 % 07/11/17 07:23 Myelocytes % 0 % 07/11/17 07:23 Promyelocytes % 0 % 07/11/17 07:23 Blast Cells % 0 % 07/11/17 07:23 Nucleated RBC % Not Reportable 07/11/17 07:23 Seg Neutrophils # 10.3 K/mm3 (1.8-7.7) H 07/10/17 05:06 Seg Neutrophils # Man 11.4 K/mm3 (1.8-7.7) H 07/11/17 07:23 Band Neutrophils # 0.1 K/mm3 07/11/17 07:23 Lymphocytes # (Manual) 0.0 K/mm3 (1.2-5.4) L 07/11/17 07:23 Abs React Lymphs (Man) 0.0 K/mm3 07/11/17 07:23 Monocytes # (Manual) 0.2 K/mm3 (0.0-0.8) 07/11/17 07:23 Eosinophils # (Manual) 0.0 K/mm3 (0.0-0.4) 07/11/17 07:23 Basophils # (Manual) 0.0 K/mm3 (0.0-0.1) 07/11/17 07:23 Metamyelocytes # 0.0 K/mm3 07/11/17 07:23 Myelocytes # 0.0 K/mm3 07/11/17 07:23 Promyelocytes # 0.0 K/mm3 07/11/17 07:23 Blast Cells # 0.0 K/mm3 07/11/17 07:23 WBC Morphology Not Reportable 07/11/17 07:23 Hypersegmented Neuts Not Reportable 07/11/17 07:23 Hyposegmented Neuts Not Reportable 07/11/17 07:23 Hypogranular Neuts Not Reportable 07/11/17 07:23 Smudge Cells Not Reportable 07/11/17 07:23 Toxic Granulation Not Reportable 07/11/17 07:23 Toxic Vacuolation Not Reportable 07/11/17 07:23 Dohle Bodies Not Reportable 07/11/17 07:23 Pelger-Huet Anomaly Not Reportable 07/11/17 07:23 Levy Rods Not Reportable 07/11/17 07:23 Platelet Estimate Consistent w auto 07/11/17 07:23 Clumped Platelets Not Reportable 07/11/17 07:23 Plt Clumps, EDTA Not Reportable 07/11/17 07:23 Large Platelets Few 07/11/17 07:23 Giant Platelets Not Reportable 07/11/17 07:23 Platelet Satelliting Not Reportable 07/11/17 07:23 Plt Morphology Comment Not Reportable 07/11/17 07:23 RBC Morphology Not Reportable 07/11/17 07:23 Dimorphic RBCs Not Reportable 07/11/17 07:23 Polychromasia Not Reportable 07/11/17 07:23 Hypochromasia Not Reportable 07/11/17 07:23 Poikilocytosis Not Reportable 07/11/17 07:23 Anisocytosis 1+ 07/11/17 07:23 Microcytosis Not Reportable 07/11/17 07:23 Macrocytosis 2+ 07/11/17 07:23 Spherocytes Not Reportable 07/11/17 07:23 Pappenheimer Bodies Not Reportable 07/11/17 07:23 Sickle Cells Not Reportable 07/11/17 07:23 Target Cells 2+ 07/11/17 07:23 Tear Drop Cells Not Reportable 07/11/17 07:23 Ovalocytes Not Reportable 07/11/17 07:23 Helmet Cells Not Reportable 07/11/17 07:23 [place] Bodies Not Reportable 07/11/17 07:23 [place] Rings Not Reportable 07/11/17 07:23 Ben Cells Not Reportable 07/11/17 07:23 Bite Cells Not Reportable 07/11/17 07:23 Crenated Cell Not Reportable 07/11/17 07:23 Elliptocytes Not Reportable 07/11/17 07:23 Acanthocytes (Spur) Not Reportable 07/11/17 07:23 Rouleaux Not Reportable 07/11/17 07:23 Hemoglobin C Crystals Not Reportable 07/11/17 07:23 Schistocytes Not Reportable 07/11/17 07:23 Malaria parasites Not Reportable 07/11/17 07:23 [place] Alfredo Bodies Not Reportable 07/11/17 07:23 Hem Pathologist Commnt No 07/11/17 07:23 PT 22.0 Sec. (12.2-14.9) H 07/12/17 19:02 INR 1.81 (0.87-1.13) H 07/12/17 19:02 APTT 54.5 Sec. (24.2-36.6) H 07/13/17 02:00 POC ABG pH 7.190 (7.35-7.45) L 07/12/17 22:44 POC ABG pCO2 42.1 (35-45) 07/12/17 22:44 POC ABG pO2 250 (80-105) H 07/12/17 22:44 POC ABG HCO3 16.1 07/12/17 22:44 POC ABG Total CO2 17 07/12/17 22:44 POC ABG O2 Sat 100 07/12/17 22:44 POC ABG Base Excess -12 07/12/17 22:44 POC Sodium 131 mmol/L (138-146) L 07/12/17 18:58 POC Potassium 4.1 (3.5-4.9) 07/12/17 18:58 POC Chloride 96 (98-109) L 07/12/17 18:58 FiO2 100 % 07/12/17 22:44 Sodium 134 mmol/L (137-145) L 07/13/17 02:00 Potassium 4.1 mmol/L (3.6-5.0) 07/13/17 02:00 Chloride 92.5 mmol/L (98-107) L 07/13/17 02:00 Carbon Dioxide 13 mmol/L (22-30) L 07/13/17 02:00 Anion Gap 33 mmol/L 07/13/17 02:00 POC BUN 35 mg/dl (8-26) H 07/12/17 18:58 BUN 33 mg/dL (7-17) H 07/13/17 02:00 Creatinine 1.8 mg/dL (0.7-1.2) H 07/13/17 02:00 Estimated GFR 36 ml/min 07/13/17 02:00 BUN/Creatinine Ratio 18 % 07/13/17 02:00 Glucose 124 mg/dL (65-100) H 07/13/17 02:00 POC Glucose 112 (70-105) H 07/12/17 18:58 Osmolality 283 Mosm/kg 07/12/17 13:02 Calcium 5.2 mg/dL (8.4-10.2) L* 07/13/17 02:00 Phosphorus 4.90 mg/dL (2.5-4.5) H D 07/11/17 07:23 Magnesium 2.40 mg/dL (1.7-2.3) H 07/11/17 07:23 Iron 146 ug/dL (37-170) 07/09/17 17:56 TIBC 134 mcg/dL (250-450) L 07/09/17 17:56 Ferritin 845.5 ng/mL (13.0-400.0) H 07/09/17 17:56 Total Bilirubin 23.90 mg/dL (0.1-1.2) H 07/12/17 19:02 Direct Bilirubin 16.9 mg/dL (0-0.2) H 07/12/17 07:48 Indirect Bilirubin 11.8 mg/dL 07/12/17 07:48 AST 320 units/L (5-40) H 07/12/17 19:02 ALT 168 units/L (7-56) H 07/12/17 19:02 Alkaline Phosphatase 91 units/L (35-129) 07/12/17 19:02 Ammonia 101.0 umol/L (25-60) H 07/12/17 13:02 Total Creatine Kinase 67 units/L (30-135) 07/09/17 10:45 CK-MB (CK-2) 2.0 ng/mL (0.0-4.0) 07/09/17 10:45 CK-MB (CK-2) Rel Index 2.9 (0-4) 07/09/17 10:45 Troponin T < 0.010 ng/mL (0.00-0.029) 07/09/17 10:45 Total Protein 5.3 g/dL (6.3-8.2) L 07/12/17 19:02 Albumin 3.1 g/dL (3.9-5) L 07/12/17 19:02 Albumin/Globulin Ratio 1.4 % 07/12/17 19:02 Lipase 36 units/L (13-60) 07/09/17 00:47 TSH 0.326 mlU/mL (0.270-4.200) 07/12/17 13:02 Actin IgG Antibody <20 U (<20) 07/10/17 05:54 Hepatitis A IgM Ab Non-reactive (NonReactive) 07/09/17 17:56 Hep Bs Antigen Non-reactive (Negative) 07/09/17 17:56 Hep B Core IgM Ab Non-reactive (NonReactive) 07/09/17 17:56 Hepatitis C Antibody Non-reactive (NonReactive) 07/09/17 17:56 Blood Type O POSITIVE 07/12/17 18:55 Antibody Screen Negative 07/12/17 18:55 Crossmatch See Detail 07/12/17 18:55
[2017-07-13] MEDS: TRENTAL PO SCH ×2 (09:49→22:04)
[2017-07-13] MEDS: PROTONIX 80 MG in NACL 0.9% 100 ML IV SCH ×3 (10:00→20:44)
--- NOTE | 2017-07-13 11:16 | Operative Report ---
Operative Report Operative Report: EXAM: ULTRASOUND-GUIDED PLACEMENT OF TRIPLE-LUMEN CATHETER CLINICAL INDICATION: PATIENT WITH A HISTORY OF GI BLEED REQUIRING CENTRAL VENOUS ACCESS FOR PRESSORS/BLOOD PRODUCTS DATE: 07/13/2017 PROCEDURE: Following an expiration of the risks, benefits and alternatives; written informed consent was obtained. The procedure was performed at bedside in the ICU. Initial ultrasound evaluation of the patient's right groin demonstrated edematous tissues. The right common femoral vein is patent. The patient was prepped and draped in the usual sterile fashion. 1% lidocaine was used for anesthesia. Under ultrasound guidance, the right common femoral vein was cannulated with a 7 cm 18-gauge needle. A 0.035 guidewire was advanced centrally easily. The needle was moved and following dilation, a triple-lumen catheter was placed centrally. Nonpulsatile blood return from all 3 ports. Catheter was securely fastened of the skin surface using 2-0 nylon suture and a sterile dressing applied. The patient tolerated the procedure well. There were no immediate post procedure complications. Conscious sedation was not utilized. Continuous cardiopulmonary monitoring in the ICU was utilized. IMPRESSION: 1) Ultrasound guided placement of triple-lumen catheter via the right common femoral vein.
[2017-07-13] MEDS: SODIUM BICARBONATE PO SCH (11:23)
[2017-07-13] MEDS: NEO-SYNEPHRINE 100 MG in NACL 0.9% 90 ML IV SCH ×3 (11:38→20:44)
--- NOTE | 2017-07-13 11:39 | Progress Note ---
Assessment and Plan 1. Alcoholic liver disease - most c/w severe alcoholic hepatitis, which has a significant mortality rate. No clear indication of cirrhosis. Pt on Trental. May add steroids, though increased risk of infection noted. - prognosis extremely guarded 2. Bleeding - from biopsy site and from tooth site. No clear evidence of active bleeding. Etiology for severity of bleed unclear, though INR was moderately elevated. No indication of portal HTN. - monitor H/H and transfuse as needed - monitor INR, and give FFP as needed. - have consulted Hematology to help assess coagulopathy. Situation discussed with family. Subjective Date of service: 07/13/17 Principal diagnosis: jaundice, ascites, cirrhosis Interval history: Pt intubated. Events overnight noted. RN reports oozing of blood from mouth through night, no BMs. Objective - Constitutional Vitals: Vital Signs - 12hr 07/12/17 07/12/17 07/13/17 23:40 23:50 00:00 Temperature Pulse Rate 112 H 115 H 112 H Pulse Rate [ Apical] Respiratory 22 25 H 23 Rate Blood Pressure 102/61 102/61 102/61 O2 Sat by Pulse 93 94 93 Oximetry 07/13/17 07/13/17 07/13/17 00:10 00:20 00:30 Temperature Pulse Rate 109 H 110 H 113 H Pulse Rate [ Apical] Respiratory 22 22 22 Rate Blood Pressure 96/57 96/57 112/63 O2 Sat by Pulse 95 96 95 Oximetry 07/13/17 07/13/17 07/13/17 00:41 00:51 01:00 Temperature Pulse Rate 113 H 112 H 106 H Pulse Rate [ Apical] Respiratory 14 22 22 Rate Blood Pressure 96/57 96/57 88/55 O2 Sat by Pulse 96 89 96 Oximetry 07/13/17 07/13/17 07/13/17 01:11 01:21 01:30 Temperature Pulse Rate 106 H 105 H 104 H Pulse Rate [ Apical] Respiratory 22 21 22 Rate Blood Pressure 103/59 98/53 86/54 O2 Sat by Pulse 97 97 98 Oximetry 07/13/17 07/13/17 07/13/17 01:41 02:01 02:15 Temperature Pulse Rate 103 H 105 H 100 H Pulse Rate [ Apical] Respiratory 23 24 22 Rate Blood Pressure 86/54 96/57 82/40 O2 Sat by Pulse 98 97 97 Oximetry 0207/13/17 07/13/17 02:31 02:45 02:59 Temperature Pulse Rate 99 H 97 H Pulse Rate [ Apical] Respiratory 21 22 Rate Blood Pressure 83/48 85/48 89/33 O2 Sat by Pulse 97 97 Oximetry 07/13/17 07/13/17 07/13/17 03:00 03:15 03:26 Temperature 95.1 F L Pulse Rate 100 H 95 H Pulse Rate [ Apical] Respiratory 22 22 Rate Blood Pressure 91/48 78/47 O2 Sat by Pulse 99 97 Oximetry 07/13/17 07/13/17 07/13/17 03:30 03:41 03:45 Temperature 97.4 F L Pulse Rate 95 H 93 H Pulse Rate [ Apical] Respiratory 22 22 Rate Blood Pressure 81/53 82/53 O2 Sat by Pulse 97 93 Oximetry 07/13/17 07/13/17 07/13/17 03:52 03:56 04:00 Temperature 97.3 F L 97.3 F L Pulse Rate 94 H 96 H Pulse Rate [ 89 Apical] Respiratory 22 22 Rate Blood Pressure 86/51 87/53 O2 Sat by Pulse 100 Oximetry 07/13/17 07/13/17 07/13/17 04:15 04:19 04:21 Temperature 97.3 F L Pulse Rate 95 H 92 H Pulse Rate [ Apical] Respiratory 23 22 Rate Blood Pressure 86/51 86/51 O2 Sat by Pulse 99 98 Oximetry 07/13/17 07/13/17 07/13/17 04:22 04:30 04:35 Temperature 97.4 F L 97.3 F L Pulse Rate 91 H 96 H 97 H Pulse Rate [ Apical] Respiratory 23 17 Rate Blood Pressure 88/55 83/56 83/36 O2 Sat by Pulse 98 99 99 Oximetry 07/13/17 07/13/17 07/13/17 04:41 04:51 05:00 Temperature Pulse Rate 96 H 92 H 91 H Pulse Rate [ Apical] Respiratory 22 23 22 Rate Blood Pressure 83/56 87/47 88/55 O2 Sat by Pulse 100 100 99 Oximetry 07/13/17 07/13/17 07/13/17 05:11 05:18 05:21 Temperature 96 F L Pulse Rate 94 H 86 91 H Pulse Rate [ Apical] Respiratory 22 23 23 Rate Blood Pressure 88/55 81/46 84/48 O2 Sat by Pulse 97 99 97 Oximetry 07/13/17 07/13/17 07/13/17 05:30 05:41 05:51 Temperature Pulse Rate 91 H 93 H 87 Pulse Rate [ Apical] Respiratory 22 22 22 Rate Blood Pressure 81/48 81/48 75/45 O2 Sat by Pulse 97 98 98 Oximetry 07/13/17 07/13/17 07/13/17 06:00 06:11 06:21 Temperature Pulse Rate 92 H 89 88 Pulse Rate [ Apical] Respiratory 23 21 21 Rate Blood Pressure 69/48 69/48 80/46 O2 Sat by Pulse 96 97 100 Oximetry 07/13/17 07/13/17 07/13/17 06:30 06:41 06:51 Temperature Pulse Rate 88 87 90 Pulse Rate [ Apical] Respiratory 23 22 19 Rate Blood Pressure 80/48 80/48 78/45 O2 Sat by Pulse 100 99 99 Oximetry 07/13/17 07/13/17 07/13/17 07:00 07:11 07:21 Temperature Pulse Rate 90 94 H 91 H Pulse Rate [ Apical] Respiratory 21 26 H 20 Rate Blood Pressure 79/50 79/50 79/50 O2 Sat by Pulse 100 99 99 Oximetry 07/13/17 07/13/17 07/13/17 07:30 07:41 07:51 Temperature Pulse Rate 90 87 89 Pulse Rate [ Apical] Respiratory 23 22 16 Rate Blood Pressure 83/53 83/53 83/53 O2 Sat by Pulse 100 98 99 Oximetry 07/13/17 07/13/17 07/13/17 08:00 09:00 09:15 Temperature 94 F L 96 F L Pulse Rate 86 89 Pulse Rate [ Apical] Respiratory 23 23 Rate Blood Pressure 81/46 90/58 O2 Sat by Pulse 99 99 Oximetry 07/13/17 07/13/17 07/13/17 09:45 09:50 10:00 Temperature Pulse Rate 84 84 85 Pulse Rate [ Apical] Respiratory 22 23 Rate Blood Pressure 94/50 94/50 80/50 O2 Sat by Pulse 99 100 99 Oximetry 07/13/17 11:23 Temperature Pulse Rate Pulse Rate [ Apical] Respiratory Rate Blood Pressure 80/45 O2 Sat by Pulse Oximetry General appearance: Present: other (Intubated. Responds to eyelash touch.) - EENT Eyes: PERRL, scleral icterus ENT: other (Intubated. Dried old blood noted on teeth. No fresh blood.) - Gastrointestinal General gastrointestinal: Present: non-tender, hypoactive bowel sounds, other ( Obese) - Labs CBC & Chem 7: 07/13/17 02:00 07/13/17 02:00 Labs: Abnormal lab results 07/12/17 07/12/17 07/12/17 Range/Units 13:02 13:02 18:55 WBC (4.5-11.0) K/mm3 RBC (3.65-5.03) M/mm3 Hgb (10.1-14.3) gm/dl POC Hgb (12-17) Hct (30.3-42.9) % POC Hct (38-51) MCV (79-97) fl MCH (28-32) pg MCHC (30-34) % RDW (13.2-15.2) % PT 20.3 H (12.2-14.9) Sec. INR 1.63 H (0.87-1.13) APTT (24.2-36.6) Sec. POC ABG pH (7.35-7.45) POC ABG pCO2 (35-45) POC ABG pO2 (80-105) POC Sodium (138-146) mmol/L POC Chloride (98-109) Sodium (137-145) mmol/L Chloride (98-107) mmol/L Carbon Dioxide (22-30) mmol/L POC BUN (8-26) mg/dl BUN (7-17) mg/dL Creatinine (0.7-1.2) mg/dL Glucose (65-100) mg/dL POC Glucose (70-105) Calcium (8.4-10.2) mg/dL Total Bilirubin (0.1-1.2) mg/dL AST (5-40) units/L ALT (7-56) units/L Ammonia 101.0 H (25-60) umol/L Total Protein (6.3-8.2) g/dL Albumin (3.9-5) g/dL Crossmatch See Detail 07/12/17 07/12/17 07/12/17 Range/Units 18:58 19:02 19:02 WBC 18.7 H (4.5-11.0) K/mm3 RBC 2.58 L (3.65-5.03) M/mm3 Hgb 10.0 L (10.1-14.3) gm/dl POC Hgb 10.9 L (12-17) Hct 29.4 L (30.3-42.9) % POC Hct 32 L (38-51) MCV 114 H (79-97) fl MCH 39 H (28-32) pg MCHC (30-34) % RDW 19.6 H (13.2-15.2) % PT 22.0 H (12.2-14.9) Sec. INR 1.81 H (0.87-1.13) APTT 50.1 H (24.2-36.6) Sec. POC ABG pH (7.35-7.45) POC ABG pCO2 (35-45) POC ABG pO2 (80-105) POC Sodium 131 L (138-146) mmol/L POC Chloride 96 L (98-109) Sodium (137-145) mmol/L Chloride (98-107) mmol/L Carbon Dioxide (22-30) mmol/L POC BUN 35 H (8-26) mg/dl BUN (7-17) mg/dL Creatinine (0.7-1.2) mg/dL Glucose (65-100) mg/dL POC Glucose 112 H (70-105) Calcium (8.4-10.2) mg/dL Total Bilirubin (0.1-1.2) mg/dL AST (5-40) units/L ALT (7-56) units/L Ammonia (25-60) umol/L Total Protein (6.3-8.2) g/dL Albumin (3.9-5) g/dL Crossmatch 07/12/17 07/12/17 07/12/17 Range/Units 19:02 19:29 22:44 WBC (4.5-11.0) K/mm3 RBC (3.65-5.03) M/mm3 Hgb (10.1-14.3) gm/dl POC Hgb (12-17) Hct (30.3-42.9) % POC Hct (38-51) MCV (79-97) fl MCH (28-32) pg MCHC (30-34) % RDW (13.2-15.2) % PT (12.2-14.9) Sec. INR (0.87-1.13) APTT (24.2-36.6) Sec. POC ABG pH 7.049 L 7.190 L (7.35-7.45) POC ABG pCO2 54.1 H (35-45) POC ABG pO2 250 H (80-105) POC Sodium (138-146) mmol/L POC Chloride (98-109) Sodium 130 L (137-145) mmol/L Chloride 89.7 L (98-107) mmol/L Carbon Dioxide 13 L (22-30) mmol/L POC BUN (8-26) mg/dl BUN 34 H (7-17) mg/dL Creatinine 1.6 H D (0.7-1.2) mg/dL Glucose 116 H (65-100) mg/dL POC Glucose (70-105) Calcium 6.1 L (8.4-10.2) mg/dL Total Bilirubin 23.90 H (0.1-1.2) mg/dL AST 320 H (5-40) units/L ALT 168 H (7-56) units/L Ammonia (25-60) umol/L Total Protein 5.3 L (6.3-8.2) g/dL Albumin 3.1 L (3.9-5) g/dL Crossmatch 07/13/17 07/13/17 07/13/17 Range/Units 02:00 02:00 02:00 WBC 14.1 H (4.5-11.0) K/mm3 RBC 1.43 L (3.65-5.03) M/mm3 Hgb 5.5 L* D (10.1-14.3) gm/dl POC Hgb (12-17) Hct 15.9 L* D (30.3-42.9) % POC Hct (38-51) MCV 111 H (79-97) fl MCH 39 H (28-32) pg MCHC 35 H (30-34) % RDW 20.0 H (13.2-15.2) % PT (12.2-14.9) Sec. INR (0.87-1.13) APTT 54.5 H (24.2-36.6) Sec. POC ABG pH (7.35-7.45) POC ABG pCO2 (35-45) POC ABG pO2 (80-105) POC Sodium (138-146) mmol/L POC Chloride (98-109) Sodium 134 L (137-145) mmol/L Chloride 92.5 L (98-107) mmol/L Carbon Dioxide 13 L (22-30) mmol/L POC BUN (8-26) mg/dl BUN 33 H (7-17) mg/dL Creatinine 1.8 H (0.7-1.2) mg/dL Glucose 124 H (65-100) mg/dL POC Glucose (70-105) Calcium 5.2 L* (8.4-10.2) mg/dL Total Bilirubin (0.1-1.2) mg/dL AST (5-40) units/L ALT (7-56) units/L Ammonia (25-60) umol/L Total Protein (6.3-8.2) g/dL Albumin (3.9-5) g/dL Crossmatch
[2017-07-13] MEDS: SODIUM BICARBONATE 150 MEQ in D5W 1,000 ML IV SCH (12:00)
[2017-07-13] MEDS ORDERED: VITAMIN K (ADULT ONLY) SUB-Q STA (12:22)
[2017-07-13 12:29] LABS: Hematocrit 29.7 % (30.3-42.9); Hemoglobin 9.6 gm/dl (10.1-14.3)
--- NOTE | 2017-07-13 12:37 | Hem/Onc Consultation ---
History of Present Illness - Reason for Consult Consult date: 07/13/17 Requesting physician: MIKE FELTON - History of Present Illness Patient admitted with ETOH hepatitis and flu like symptoms. Noted with onstructive jaundice and had ERCP. Biopsy site bleeding. Tooth bleeding. S/p 4 U PRBC and 2 FFP. We are consulted for an opinion. Past History Past Medical History: arthritis, other (anxiety, swine flu (2010), bronchitis) Past Surgical History: (x2), hysterectomy (partial) Social history: smoking, alcohol abuse Medications and Allergies Allergies Allergy/AdvReac Type Severity Reaction Status Date / Time No Known Allergies Allergy Unverified 07/08/17 14:11 Home Medications Medication Instructions Recorded Confirmed Last Taken Type ALBUTEROL Inhaler(NF) [VENTOLIN 1 puff IH BID PRN 07/12/17 07/12/17 07/09/17 History Inhaler(NF)] Active Meds: Active Medications Acetaminophen (Tylenol) 650 mg PO Q4H PRN PRN Reason: For Pain/Fever/Headache Albuterol (Proventil) 2.5 mg IH Q4HRT PRN PRN Reason: Shortness Of Breath Last Admin: 07/12/17 11:37 Dose: 2.5 mg Hydromorphone HCl (Dilaudid) 0.5 mg IV Q4H PRN PRN Reason: Pain Last Admin: 07/11/17 20:24 Dose: 0.5 mg Sodium Bicarbonate 150 meq/ (Dextrose) 1,150 mls @ 75 mls/hr IV DIRECT JOSEFINA Octreotide Acetate 500 mcg/ (Sodium Chloride) 101 mls @ 5.05 mls/hr IV TITR JOSEFINA ; 25 MCG/HR PRN Reason: Protocol Last Admin: 07/12/17 21:07 Dose: 25 mcg/hr, 5.05 mls/hr Sodium Chloride (Nacl 0.9% 1000 Ml) 1,000 mls @ 50 mls/hr IV DIRECT JOSEFINA Last Admin: 07/13/17 08:53 Dose: 50 mls/hr Pantoprazole Sodium 80 mg/ (Sodium Chloride) 100 mls @ 10 mls/hr IV DIRECT JOSEFINA PRN Reason: 8 MG/HR Dopamine HCl/Dextrose (Intropin Drip 800 Mg/D5w 250 Ml) 800 mg in 250 mls @ 2.138 mls/hr IV TITR JOSEFINA; 2 MCG/KG/MIN PRN Reason: Protocol Phenylephrine HCl 100 mg/ (Sodium Chloride) 100 mls @ 3 mls/hr IV TITR JOSEFINA; 50 MCG/MIN PRN Reason: Protocol Last Admin: 07/13/17 11:38 Dose: 50 mcg/min, 3 mls/hr Lorazepam (Ativan) 4 mg IV Q15MIN PRN PRN Reason: CIWA-Ar >25 Lorazepam (Ativan) 2 mg IV Q1H PRN PRN Reason: CIWA-Ar 8-15 Last Admin: 07/12/17 10:00 Dose: 2 mg Lorazepam (Ativan) 4 mg IV Q1H PRN PRN Reason: CIWA-Ar 16-25 Nitroglycerin (Nitro-Bid 2%) 0.5 inch TP QIDNTG JOSEFINA PRN Reason: Protocol Last Admin: 07/13/17 11:23 Dose: Not Given Ondansetron HCl (Zofran) 4 mg IV Q4H PRN PRN Reason: Nausea And Vomiting Last Admin: 07/12/17 04:08 Dose: 4 mg Pentoxifylline (Trental) 400 mg PO Q8HR [facility] Last Admin: 07/13/17 09:49 Dose: Not Given Phytonadione (Vitamin K (Adult Only)) 5 mg SUB-Q ONCE STA Stop: 07/13/17 12:23 Sodium Bicarbonate (Sodium Bicarbonate) 1,300 mg PO TID [facility] Last Admin: 07/13/17 11:23 Dose: Not Given Review of Systems ROS unobtainable: due to endotracheal tube Exam - Constitutional Vitals: Last Vital Signs Temp 96 F L 07/13/17 09:00 Pulse 85 07/13/17 11:51 Resp 24 07/13/17 11:51 BP 83/42 07/13/17 11:51 Pulse Ox 100 07/13/17 11:51 - EENT Lymph node exam: negative cervical - Neck Neck: supple - Respiratory Respiratory effort: Positive: normal Respiratory: bilateral: CTA - Cardiovascular Rhythm: regular - Gastrointestinal General gastrointestinal: Present: soft Results - Labs lab Results: Laboratory Results - last 24 hr 07/10/17 07/12/17 07/12/17 05:54 13:02 13:02 WBC RBC Hgb POC Hgb Hct POC Hct MCV MCH MCHC RDW Plt Count PT INR APTT POC ABG pH POC ABG pCO2 POC ABG pO2 POC ABG HCO3 POC ABG Total CO2 POC ABG O2 Sat POC ABG Base Excess POC Sodium POC Potassium POC Chloride FiO2 Sodium Potassium Chloride Carbon Dioxide Anion Gap POC BUN BUN Creatinine Estimated GFR BUN/Creatinine Ratio Glucose POC Glucose Osmolality 283 Calcium Total Bilirubin AST ALT Alkaline Phosphatase Ammonia Total Protein Albumin Albumin/Globulin Ratio TSH 0.326 Mitochondria M2 Ab <=20.0 Blood Type Antibody Screen Crossmatch 07/12/17 07/12/17 07/12/17 13:02 13:02 18:55 WBC RBC Hgb POC Hgb Hct POC Hct MCV MCH MCHC RDW Plt Count PT 20.3 H INR 1.63 H APTT POC ABG pH POC ABG pCO2 POC ABG pO2 POC ABG HCO3 POC ABG Total CO2 POC ABG O2 Sat POC ABG Base Excess POC Sodium POC Potassium POC Chloride FiO2 Sodium Potassium Chloride Carbon Dioxide Anion Gap POC BUN BUN Creatinine Estimated GFR BUN/Creatinine Ratio Glucose POC Glucose Osmolality Calcium Total Bilirubin AST ALT Alkaline Phosphatase Ammonia 101.0 H Total Protein Albumin Albumin/Globulin Ratio TSH Mitochondria M2 Ab Blood Type O POSITIVE Antibody Screen Negative Crossmatch See Detail 07/12/17 07/12/17 07/12/17 18:58 19:02 19:02 WBC 18.7 H RBC 2.58 L Hgb 10.0 L POC Hgb 10.9 L Hct 29.4 L POC Hct 32 L MCV 114 H MCH 39 H MCHC 34 RDW 19.6 H Plt Count 193 PT 22.0 H INR 1.81 H APTT 50.1 H POC ABG pH POC ABG pCO2 POC ABG pO2 POC ABG HCO3 POC ABG Total CO2 POC ABG O2 Sat POC ABG Base Excess POC Sodium 131 L POC Potassium 4.1 POC Chloride 96 L FiO2 Sodium Potassium Chloride Carbon Dioxide Anion Gap POC BUN 35 H BUN Creatinine Estimated GFR BUN/Creatinine Ratio Glucose POC Glucose 112 H Osmolality Calcium Total Bilirubin AST ALT Alkaline Phosphatase Ammonia Total Protein Albumin Albumin/Globulin Ratio TSH Mitochondria M2 Ab Blood Type Antibody Screen Crossmatch 07/12/17 07/12/17 07/12/17 19:02 19:29 22:44 WBC RBC Hgb POC Hgb Hct POC Hct MCV MCH MCHC RDW Plt Count PT INR APTT POC ABG pH 7.049 L 7.190 L POC ABG pCO2 54.1 H 42.1 POC ABG pO2 83 250 H POC ABG HCO3 14.9 16.1 POC ABG Total CO2 17 17 POC ABG O2 Sat 90 100 POC ABG Base Excess -16 -12 POC Sodium POC Potassium POC Chloride FiO2 100 100 Sodium 130 L Potassium 4.0 D Chloride 89.7 L Carbon Dioxide 13 L Anion Gap 31 POC BUN BUN 34 H Creatinine 1.6 H D Estimated GFR 41 BUN/Creatinine Ratio 21 Glucose 116 H POC Glucose Osmolality Calcium 6.1 L Total Bilirubin 23.90 H AST 320 H ALT 168 H Alkaline Phosphatase 91 Ammonia Total Protein 5.3 L Albumin 3.1 L Albumin/Globulin Ratio 1.4 TSH Mitochondria M2 Ab Blood Type Antibody Screen Crossmatch 07/13/17 07/13/17 07/13/17 02:00 02:00 02:00 WBC 14.1 H RBC 1.43 L Hgb 5.5 L* D POC Hgb Hct 15.9 L* D POC Hct MCV 111 H MCH 39 H MCHC 35 H RDW 20.0 H Plt Count 146 PT INR APTT 54.5 H POC ABG pH POC ABG pCO2 POC ABG pO2 POC ABG HCO3 POC ABG Total CO2 POC ABG O2 Sat POC ABG Base Excess POC Sodium POC Potassium POC Chloride FiO2 Sodium 134 L Potassium 4.1 Chloride 92.5 L Carbon Dioxide 13 L Anion Gap 33 POC BUN BUN 33 H Creatinine 1.8 H Estimated GFR 36 BUN/Creatinine Ratio 18 Glucose 124 H POC Glucose Osmolality Calcium 5.2 L* Total Bilirubin AST ALT Alkaline Phosphatase Ammonia Total Protein Albumin Albumin/Globulin Ratio TSH Mitochondria M2 Ab Blood Type Antibody Screen Crossmatch Assessment and Plan - Patient Problems (1) Bleeding acute gastric ulcer Current Visit: Yes Status: Acute Plan to address problem: Will await CBC done recently. D/w nursing they will call with CBC. Her coags are abnormal and possible contribute to the bleeding along with the alcoholic hepatitis. Recommend additional FFP and repeat coags. The mouth bleeding from the tooth has stopped per the nursing. Her prognosis is poor from the liver cirrhosis standpoint. (2) Elevated liver function tests Current Visit: Yes Status: Acute
[2017-07-13 12:41] LABS: INR 3.14 (0.87-1.13)
[2017-07-13] MEDS: SandoSTATIN 500 MCG in NACL 0.9% 100 ML IV SCH (13:31)
--- NOTE | 2017-07-13 13:36 | Consultation ---
History of Present Illness Consult date: 07/13/17 Requesting physician: JAILYN BRYAN Reason for consult: other (acute respiratory failure.) History of present illness: 51 y/o female with ETOH hepatitis admitted to ICU with acute respiratory failure. Patient had to be intubated in ENDO secondary to bleeding from mouth. There was concern for aspiration. Past History Past Medical History: arthritis, other (anxiety, swine flu (2010), bronchitis) Past Surgical History: (x2), hysterectomy (partial) Social history: smoking, alcohol abuse Medications and Allergies Allergies Allergy/AdvReac Type Severity Reaction Status Date / Time No Known Allergies Allergy Unverified 07/08/17 14:11 Home Medications Medication Instructions Recorded Confirmed Last Taken Type ALBUTEROL Inhaler(NF) [VENTOLIN 1 puff IH BID PRN 07/12/17 07/12/17 07/09/17 History Inhaler(NF)] Active Meds: Active Medications Acetaminophen (Tylenol) 650 mg PO Q4H PRN PRN Reason: For Pain/Fever/Headache Albuterol (Proventil) 2.5 mg IH Q4HRT PRN PRN Reason: Shortness Of Breath Last Admin: 07/12/17 11:37 Dose: 2.5 mg Hydrocortisone Sodium Succinate (Solu-Cortef) 100 mg IV Q8HR JOSEFINA Hydromorphone HCl (Dilaudid) 0.5 mg IV Q4H PRN PRN Reason: Pain Last Admin: 07/11/17 20:24 Dose: 0.5 mg Sodium Bicarbonate 150 meq/ (Dextrose) 1,150 mls @ 75 mls/hr IV DIRECT JOSEFINA Octreotide Acetate 500 mcg/ (Sodium Chloride) 101 mls @ 5.05 mls/hr IV TITR JOSEFINA ; 25 MCG/HR PRN Reason: Protocol Last Admin: 07/12/17 21:07 Dose: 25 mcg/hr, 5.05 mls/hr Sodium Chloride (Nacl 0.9% 1000 Ml) 1,000 mls @ 50 mls/hr IV DIRECT JOSEFINA Last Admin: 07/13/17 08:53 Dose: 50 mls/hr Pantoprazole Sodium 80 mg/ (Sodium Chloride) 100 mls @ 10 mls/hr IV DIRECT JOSEFINA PRN Reason: 8 MG/HR Dopamine HCl/Dextrose (Intropin Drip 800 Mg/D5w 250 Ml) 800 mg in 250 mls @ 2.138 mls/hr IV TITR JOSEFINA; 2 MCG/KG/MIN PRN Reason: Protocol Phenylephrine HCl 100 mg/ (Sodium Chloride) 100 mls @ 3 mls/hr IV TITR JOSEFINA; 50 MCG/MIN PRN Reason: Protocol Last Admin: 07/13/17 11:38 Dose: 50 mcg/min, 3 mls/hr Vasopressin 20 unit/ Sodium (Chloride) 101 mls @ 9.09 mls/hr IV TITR JOSEFINA; 0.03 UNITS/MIN PRN Reason: Protocol Lorazepam (Ativan) 4 mg IV Q15MIN PRN PRN Reason: CIWA-Ar >25 Lorazepam (Ativan) 2 mg IV Q1H PRN PRN Reason: CIWA-Ar 8-15 Last Admin: 07/12/17 10:00 Dose: 2 mg Lorazepam (Ativan) 4 mg IV Q1H PRN PRN Reason: CIWA-Ar 16-25 Nitroglycerin (Nitro-Bid 2%) 0.5 inch TP QIDNTG [facility] PRN Reason: Protocol Last Admin: 07/13/17 11:23 Dose: Not Given Ondansetron HCl (Zofran) 4 mg IV Q4H PRN PRN Reason: Nausea And Vomiting Last Admin: 07/12/17 04:08 Dose: 4 mg Pentoxifylline (Trental) 400 mg PO Q8HR [facility] Last Admin: 07/13/17 09:49 Dose: Not Given Sodium Bicarbonate (Sodium Bicarbonate) 1,300 mg PO TID [facility] Last Admin: 07/13/17 11:23 Dose: Not Given Review of Systems ROS unobtainable: due to endotracheal tube, due to mental status Physical Examination Vital signs: Vital Signs Temp Pulse Resp BP Pulse Ox 97.5 F L 101 H 16 107/65 100 07/08/17 14:06 07/08/17 14:06 07/08/17 14:06 07/08/17 14:06 07/08/17 14:06 General appearance: lethargic, appears uncomfortable Eyes: icteric ENT: other (orally intubated and not on sedation) Neck: supple Effort: mildly labored Ascultation: Bilateral: clear Percussion: Bilateral: not dull Cardiovascular: regular rate and rhythm Gastrointestinal: hypoactive bowel sounds, soft Extremities: no cyanosis, no edema, cool unable to assess Results - Laboratory Findings CBC and BMP: 07/13/17 12:11 07/13/17 02:00 ABG POC ABG pH 7.190 (7.35-7.45) L 07/12/17 22:44 POC ABG pCO2 42.1 (35-45) 07/12/17 22:44 POC ABG pO2 250 (80-105) H 07/12/17 22:44 POC ABG HCO3 16.1 07/12/17 22:44 POC ABG Total CO2 17 07/12/17 22:44 POC ABG O2 Sat 100 07/12/17 22:44 PT/INR, D-dimer PT 34.2 Sec. (12.2-14.9) H 07/13/17 12:11 INR 3.14 (0.87-1.13) H 07/13/17 12:11 Abnormal lab findings: Abnormal Labs 07/08/17 07/08/17 07/08/17 14:17 14:17 14:17 WBC 13.1 H RBC 3.43 L Hgb POC Hgb Hct POC Hct MCV 110 H MCH 38 H MCHC 35 H RDW 18.7 H Plt Count Lymph % (Auto) 6.4 L Lymph # 0.8 L Seg Neutrophils % 89.8 H Seg Neuts % (Manual) Lymphocytes % (Manual) Seg Neutrophils # 11.7 H Seg Neutrophils # Man Lymphocytes # (Manual) PT INR APTT POC ABG pH POC ABG pCO2 POC ABG pO2 POC Sodium POC Chloride Sodium 125 L Potassium 2.4 L* Chloride 69.7 L Carbon Dioxide POC BUN BUN 20 H Creatinine Glucose 117 H POC Glucose Calcium 8.0 L Phosphorus Magnesium TIBC Ferritin Total Bilirubin 16.50 H Direct Bilirubin 10.4 H AST 399 H ALT 140 H Ammonia Total Protein Albumin 3.0 L Crossmatch 07/09/17 07/09/17 07/09/17 01:01 07:21 10:45 WBC RBC Hgb POC Hgb Hct POC Hct MCV MCH MCHC RDW Plt Count Lymph % (Auto) Lymph # Seg Neutrophils % Seg Neuts % (Manual) Lymphocytes % (Manual) Seg Neutrophils # Seg Neutrophils # Man Lymphocytes # (Manual) PT 20.5 H INR 1.65 H APTT POC ABG pH POC ABG pCO2 POC ABG pO2 POC Sodium POC Chloride Sodium 129 L Potassium 2.7 L* Chloride 81.3 L Carbon Dioxide POC BUN BUN 23 H Creatinine Glucose 56 L POC Glucose Calcium 6.7 L D Phosphorus Magnesium 1.20 L TIBC Ferritin Total Bilirubin Direct Bilirubin AST ALT Ammonia Total Protein Albumin Crossmatch 07/09/17 07/09/17 07/09/17 17:56 17:56 17:56 WBC RBC Hgb POC Hgb Hct POC Hct MCV MCH MCHC RDW Plt Count Lymph % (Auto) Lymph # Seg Neutrophils % Seg Neuts % (Manual) Lymphocytes % (Manual) Seg Neutrophils # Seg Neutrophils # Man Lymphocytes # (Manual) PT INR APTT POC ABG pH POC ABG pCO2 POC ABG pO2 POC Sodium POC Chloride Sodium 125 L Potassium 3.1 L Chloride 81.5 L Carbon Dioxide POC BUN BUN 23 H Creatinine Glucose POC Glucose Calcium 6.8 L Phosphorus 1.60 L Magnesium 1.10 L TIBC 134 L Ferritin 845.5 H Total Bilirubin Direct Bilirubin AST ALT Ammonia Total Protein Albumin Crossmatch 07/10/17 07/10/17 07/10/17 05:06 05:06 05:06 WBC 12.0 H RBC 3.19 L Hgb POC Hgb Hct POC Hct MCV 109 H MCH 37 H MCHC 35 H RDW 18.9 H Plt Count Lymph % (Auto) 9.2 L Lymph # 1.1 L Seg Neutrophils % 86.2 H Seg Neuts % (Manual) Lymphocytes % (Manual) Seg Neutrophils # 10.3 H Seg Neutrophils # Man Lymphocytes # (Manual) PT INR APTT POC ABG pH POC ABG pCO2 POC ABG pO2 POC Sodium POC Chloride Sodium 127 L Potassium Chloride 86.0 L Carbon Dioxide 21 L POC BUN BUN 24 H Creatinine 0.4 L Glucose POC Glucose Calcium 6.8 L Phosphorus 1.30 L Magnesium 1.40 L TIBC Ferritin Total Bilirubin Direct Bilirubin AST ALT Ammonia Total Protein Albumin Crossmatch 07/11/17 07/11/17 07/11/17 07:23 07:23 07:23 WBC 11.8 H RBC 2.93 L Hgb POC Hgb Hct POC Hct MCV 111 H MCH 38 H MCHC 35 H RDW 19.1 H Plt Count 123 L Lymph % (Auto) Lymph # Seg Neutrophils % Seg Neuts % (Manual) 97.0 H Lymphocytes % (Manual) 0 L Seg Neutrophils # Seg Neutrophils # Man 11.4 H Lymphocytes # (Manual) 0.0 L PT INR APTT POC ABG pH POC ABG pCO2 POC ABG pO2 POC Sodium POC Chloride Sodium 126 L Potassium 3.2 L Chloride 83.0 L Carbon Dioxide 21 L POC BUN BUN 26 H Creatinine Glucose POC Glucose Calcium 6.4 L Phosphorus 4.90 H D Magnesium 2.40 H TIBC Ferritin Total Bilirubin 24.80 H Direct Bilirubin AST 384 H ALT 171 H Ammonia Total Protein 5.7 L Albumin 2.7 L Crossmatch 07/11/17 07/11/17 07/12/17 07:23 09:55 07:48 WBC RBC Hgb POC Hgb Hct POC Hct MCV MCH MCHC RDW Plt Count Lymph % (Auto) Lymph # Seg Neutrophils % Seg Neuts % (Manual) Lymphocytes % (Manual) Seg Neutrophils # Seg Neutrophils # Man Lymphocytes # (Manual) PT 19.3 H INR 1.53 H APTT POC ABG pH POC ABG pCO2 POC ABG pO2 POC Sodium POC Chloride Sodium 124 L Potassium 5.1 H D Chloride 84.4 L Carbon Dioxide 11 L D POC BUN BUN 33 H Creatinine Glucose POC Glucose Calcium 6.2 L Phosphorus Magnesium TIBC Ferritin Total Bilirubin 25.00 H Direct Bilirubin 16.5 H AST 380 H ALT 169 H Ammonia Total Protein 5.6 L Albumin 2.7 L Crossmatch 07/12/17 07/12/17 07/12/17 07:48 13:02 13:02 WBC RBC Hgb POC Hgb Hct POC Hct MCV MCH MCHC RDW Plt Count Lymph % (Auto) Lymph # Seg Neutrophils % Seg Neuts % (Manual) Lymphocytes % (Manual) Seg Neutrophils # Seg Neutrophils # Man Lymphocytes # (Manual) PT 20.3 H INR 1.63 H APTT POC ABG pH POC ABG pCO2 POC ABG pO2 POC Sodium POC Chloride Sodium Potassium Chloride Carbon Dioxide POC BUN BUN Creatinine Glucose POC Glucose Calcium Phosphorus Magnesium TIBC Ferritin Total Bilirubin 28.70 H Direct Bilirubin 16.9 H AST 402 H ALT 199 H Ammonia 101.0 H Total Protein 5.9 L Albumin 2.6 L Crossmatch 07/12/17 07/12/17 07/12/17 18:55 18:58 19:02 WBC 18.7 H RBC 2.58 L Hgb 10.0 L POC Hgb 10.9 L Hct 29.4 L POC Hct 32 L MCV 114 H MCH 39 H MCHC RDW 19.6 H Plt Count Lymph % (Auto) Lymph # Seg Neutrophils % Seg Neuts % (Manual) Lymphocytes % (Manual) Seg Neutrophils # Seg Neutrophils # Man Lymphocytes # (Manual) PT INR APTT POC ABG pH POC ABG pCO2 POC ABG pO2 POC Sodium 131 L POC Chloride 96 L Sodium Potassium Chloride Carbon Dioxide POC BUN 35 H BUN Creatinine Glucose POC Glucose 112 H Calcium Phosphorus Magnesium TIBC Ferritin Total Bilirubin Direct Bilirubin AST ALT Ammonia Total Protein Albumin Crossmatch See Detail 07/12/17 07/12/17 07/12/17 19:02 19:02 19:29 WBC RBC Hgb POC Hgb Hct POC Hct MCV MCH MCHC RDW Plt Count Lymph % (Auto) Lymph # Seg Neutrophils % Seg Neuts % (Manual) Lymphocytes % (Manual) Seg Neutrophils # Seg Neutrophils # Man Lymphocytes # (Manual) PT 22.0 H INR 1.81 H APTT 50.1 H POC ABG pH 7.049 L POC ABG pCO2 54.1 H POC ABG pO2 POC Sodium POC Chloride Sodium 130 L Potassium Chloride 89.7 L Carbon Dioxide 13 L POC BUN BUN 34 H Creatinine 1.6 H D Glucose 116 H POC Glucose Calcium 6.1 L Phosphorus Magnesium TIBC Ferritin Total Bilirubin 23.90 H Direct Bilirubin AST 320 H ALT 168 H Ammonia Total Protein 5.3 L Albumin 3.1 L Crossmatch 07/12/17 07/13/17 07/13/17 22:44 02:00 02:00 WBC 14.1 H RBC 1.43 L Hgb 5.5 L* D POC Hgb Hct 15.9 L* D POC Hct MCV 111 H MCH 39 H MCHC 35 H RDW 20.0 H Plt Count Lymph % (Auto) Lymph # Seg Neutrophils % Seg Neuts % (Manual) Lymphocytes % (Manual) Seg Neutrophils # Seg Neutrophils # Man Lymphocytes # (Manual) PT INR APTT POC ABG pH 7.190 L POC ABG pCO2 POC ABG pO2 250 H POC Sodium POC Chloride Sodium 134 L Potassium Chloride 92.5 L Carbon Dioxide 13 L POC BUN BUN 33 H Creatinine 1.8 H Glucose 124 H POC Glucose Calcium 5.2 L* Phosphorus Magnesium TIBC Ferritin Total Bilirubin Direct Bilirubin AST ALT Ammonia Total Protein Albumin Crossmatch 07/13/17 07/13/17 07/13/17 02:00 12:11 12:11 WBC RBC Hgb POC Hgb Hct POC Hct MCV MCH MCHC RDW Plt Count Lymph % (Auto) Lymph # Seg Neutrophils % Seg Neuts % (Manual) Lymphocytes % (Manual) Seg Neutrophils # Seg Neutrophils # Man Lymphocytes # (Manual) PT 34.2 H INR 3.14 H APTT 54.5 H POC ABG pH POC ABG pCO2 POC ABG pO2 POC Sodium POC Chloride Sodium Potassium Chloride Carbon Dioxide POC BUN BUN Creatinine Glucose POC Glucose Calcium Phosphorus Magnesium TIBC Ferritin Total Bilirubin 16.10 H Direct Bilirubin AST 1492 H ALT 491 H Ammonia Total Protein 3.2 L D Albumin 2.0 L Crossmatch 07/13/17 12:11 WBC RBC Hgb 9.6 L D POC Hgb Hct 29.7 L D POC Hct MCV MCH MCHC RDW Plt Count Lymph % (Auto) Lymph # Seg Neutrophils % Seg Neuts % (Manual) Lymphocytes % (Manual) Seg Neutrophils # Seg Neutrophils # Man Lymphocytes # (Manual) PT INR APTT POC ABG pH POC ABG pCO2 POC ABG pO2 POC Sodium POC Chloride Sodium Potassium Chloride Carbon Dioxide POC BUN BUN Creatinine Glucose POC Glucose Calcium Phosphorus Magnesium TIBC Ferritin Total Bilirubin Direct Bilirubin AST ALT Ammonia Total Protein Albumin Crossmatch - Diagnostic Findings Chest x-ray: image reviewed Assessment and Plan 51 y/o female with alcoholic hepatitis and coagulopathy, leading to acute respiratory failure, renal failure and hypothermia. 1. Will ask RT about art line placement once INR corrected 2. Ideally needs H/H's every 6 hours for at least 24 hours 3. Will start stress dose steroids, reviewed GI note, at this point benefits outweigh the risk 4. Follow up heme recs, needs more FFP and may need platelet therapy at some point 5. Added Vasopressin to timmy, may be able wean timmy at some point. Acidotic but renal on board and they have added bicarb drip 6. Doubt this is infectious process but will check cultures. Hold on abx therapy for now 7. Overall prognosis is guarded to poor. Discussed degree of illness with Son at bedside and he understands. CCT 31 minutes.
[2017-07-13 13:57] LABS: Bilirubin,Direct 12.4 mg/dL (0-0.2)
--- NOTE | 2017-07-13 14:11 | Progress Note ---
Assessment and Plan Impression * Acute kidney injury secondary to prerenal azotemia due to hypoperfusion related to ABL * GI bleed, post bx * Anemia secondary to ABL * Acute hypoxic respiratory failure on mechanical ventilation * Hypotension * Metabolic acidosis * Alcohol hepatitis * Alcohol abuse * Coagulopathy * Hyponatremia - secondary to ADH release in cirrhosis; improved * Hyperkalemia,mild - iatrogenic; resolved Plan: * Renal prognosis is guarded * Cont NaBicarb gtt, cont 75ml/hour; will d/c po bicarb for now * Transfusion of pRBC per primary team * GI and pulmonary recommendations noted * Maintain MAP>65 - currently on Vasopressin * Vent management per CCM * Avoid potential nephrotoxins * Dose medications for renal function * Multiple family members at bedside including 2 sons and daughter - updated Subjective Date of service: 07/13/17 Principal diagnosis: jaundice, ascites, cirrhosis Interval history: 24h events reviewed - patient is now intubated Objective - Vital Signs Vital signs: Vital Signs - 12hr 07/13/17 07/13/17 07/13/17 02:15 02:31 02:45 Temperature Pulse Rate 100 H 99 H 97 H Pulse Rate [ Apical] Respiratory 22 21 22 Rate Blood Pressure 82/40 83/48 85/48 O2 Sat by Pulse 97 97 97 Oximetry 07/13/17 07/13/17 07/13/17 02:59 03:00 03:15 Temperature Pulse Rate 100 H 95 H Pulse Rate [ Apical] Respiratory 22 22 Rate Blood Pressure 89/33 91/48 78/47 O2 Sat by Pulse 99 97 Oximetry 07/13/17 07/13/17 07/13/17 03:26 03:30 03:41 Temperature 95.1 F L 97.4 F L Pulse Rate 95 H Pulse Rate [ Apical] Respiratory 22 Rate Blood Pressure 81/53 O2 Sat by Pulse 97 Oximetry 07/13/17 07/13/17 07/13/17 03:45 03:52 03:56 Temperature 97.3 F L 97.3 F L Pulse Rate 93 H 94 H Pulse Rate [ Apical] Respiratory 22 22 Rate Blood Pressure 82/53 86/51 O2 Sat by Pulse 93 Oximetry 07/13/17 07/13/17 07/13/17 04:00 04:15 04:19 Temperature 97.3 F L Pulse Rate 96 H 95 H Pulse Rate [ 89 Apical] Respiratory 22 23 Rate Blood Pressure 87/53 86/51 O2 Sat by Pulse 100 99 Oximetry 07/13/17 07/13/17 07/13/17 04:21 04:22 04:30 Temperature 97.4 F L 97.3 F L Pulse Rate 92 H 91 H 96 H Pulse Rate [ Apical] Respiratory 22 23 17 Rate Blood Pressure 86/51 88/55 83/56 O2 Sat by Pulse 98 98 99 Oximetry 07/13/17 07/13/17 07/13/17 04:35 04:41 04:51 Temperature Pulse Rate 97 H 96 H 92 H Pulse Rate [ Apical] Respiratory 22 23 Rate Blood Pressure 83/36 83/56 87/47 O2 Sat by Pulse 99 100 100 Oximetry 07/13/17 07/13/17 07/13/17 05:00 05:11 05:18 Temperature 96 F L Pulse Rate 91 H 94 H 86 Pulse Rate [ Apical] Respiratory 22 22 23 Rate Blood Pressure 88/55 88/55 81/46 O2 Sat by Pulse 99 97 99 Oximetry 07/13/17 07/13/17 07/13/17 05:21 05:30 05:41 Temperature Pulse Rate 91 H 91 H 93 H Pulse Rate [ Apical] Respiratory 23 22 22 Rate Blood Pressure 84/48 81/48 81/48 O2 Sat by Pulse 97 97 98 Oximetry 07/13/17 07/13/17 07/13/17 05:51 06:00 06:11 Temperature Pulse Rate 87 92 H 89 Pulse Rate [ Apical] Respiratory 22 23 21 Rate Blood Pressure 75/45 69/48 69/48 O2 Sat by Pulse 98 96 97 Oximetry 07/13/17 07/13/17 07/13/17 06:21 06:30 06:41 Temperature Pulse Rate 88 88 87 Pulse Rate [ Apical] Respiratory 21 23 22 Rate Blood Pressure 80/46 80/48 80/48 O2 Sat by Pulse 100 100 99 Oximetry 07/13/17 07/13/17 07/13/17 06:51 07:00 07:11 Temperature Pulse Rate 90 90 94 H Pulse Rate [ Apical] Respiratory 19 21 26 H Rate Blood Pressure 78/45 79/50 79/50 O2 Sat by Pulse 99 100 99 Oximetry 07/13/17 07/13/17 07/13/17 07:21 07:30 07:41 Temperature Pulse Rate 91 H 90 87 Pulse Rate [ Apical] Respiratory 20 23 22 Rate Blood Pressure 79/50 83/53 83/53 O2 Sat by Pulse 99 100 98 Oximetry 07/13/17 07/13/17 07/13/17 07:51 08:00 08:11 Temperature 94 F L Pulse Rate 89 85 87 Pulse Rate [ Apical] Respiratory 16 21 23 Rate Blood Pressure 83/53 79/44 79/44 O2 Sat by Pulse 99 98 98 Oximetry 07/13/17 07/13/17 07/13/17 08:21 08:30 08:41 Temperature Pulse Rate 85 86 89 Pulse Rate [ Apical] Respiratory 22 21 19 Rate Blood Pressure 79/44 76/48 74/51 O2 Sat by Pulse 98 98 98 Oximetry 07/13/17 07/13/17 07/13/17 08:51 09:00 09:11 Temperature 96 F L Pulse Rate 86 83 86 Pulse Rate [ Apical] Respiratory 22 22 26 H Rate Blood Pressure 79/50 82/46 82/46 O2 Sat by Pulse 96 100 100 Oximetry 07/13/17 07/13/17 07/13/17 09:15 09:21 09:30 Temperature Pulse Rate 89 89 85 Pulse Rate [ Apical] Respiratory 23 11 L 22 Rate Blood Pressure 90/58 90/58 94/50 O2 Sat by Pulse 99 99 100 Oximetry 07/13/17 07/13/17 07/13/17 09:41 09:45 09:50 Temperature Pulse Rate 83 84 84 Pulse Rate [ Apical] Respiratory 23 22 Rate Blood Pressure 94/50 94/50 94/50 O2 Sat by Pulse 99 99 100 Oximetry 07/13/17 07/13/17 07/13/17 09:51 10:00 10:01 Temperature Pulse Rate 85 85 88 Pulse Rate [ Apical] Respiratory 24 23 23 Rate Blood Pressure 90/59 80/50 91/50 O2 Sat by Pulse 100 99 99 Oximetry 07/13/17 07/13/17 07/13/17 10:11 10:21 10:30 Temperature Pulse Rate 84 84 88 Pulse Rate [ Apical] Respiratory 22 22 23 Rate Blood Pressure 91/50 90/57 92/52 O2 Sat by Pulse 100 100 99 Oximetry 07/13/17 07/13/17 07/13/17 10:41 10:51 11:00 Temperature Pulse Rate 84 85 86 Pulse Rate [ Apical] Respiratory 22 23 19 Rate Blood Pressure 92/52 89/50 74/47 O2 Sat by Pulse 100 99 99 Oximetry 07/13/17 07/13/17 07/13/17 11:11 11:21 11:23 Temperature Pulse Rate 82 85 Pulse Rate [ Apical] Respiratory 18 24 Rate Blood Pressure 74/47 76/47 80/45 O2 Sat by Pulse 99 99 Oximetry 07/13/17 07/13/17 07/13/17 11:30 11:41 11:51 Temperature Pulse Rate 85 87 85 Pulse Rate [ Apical] Respiratory 23 20 24 Rate Blood Pressure 78/47 80/49 83/42 O2 Sat by Pulse 100 98 100 Oximetry 07/13/17 12:00 Temperature 98.7 F Pulse Rate Pulse Rate [ Apical] Respiratory Rate Blood Pressure O2 Sat by Pulse Oximetry - Lab 07/13/17 12:11 07/13/17 02:00 Most recent lab results Calcium 5.2 mg/dL (8.4-10.2) L* 07/13/17 02:00 Phosphorus 4.90 mg/dL (2.5-4.5) H D 07/11/17 07:23 Magnesium 2.40 mg/dL (1.7-2.3) H 07/11/17 07:23
[2017-07-13] MEDS: Vasostrict 20 UNIT in NACL 0.9% 100 ML IV SCH ×2 (14:40→22:03)
[2017-07-13] MEDS: ALBURX 25% (ALBUMIN) IV SCH (16:25)
[2017-07-13 17:12] LABS: Hematocrit 31.4 % (30.3-42.9); Hemoglobin 10.6 gm/dl (10.1-14.3)
--- NOTE | 2017-07-13 17:17 | XRay Report ---
FINAL REPORT EXAM: XR CHEST 1V AP HISTORY: Tube advanced/Placement TECHNIQUE: AP portable view of the chest PRIORS: None. FINDINGS: Lines, tubes, and devices: Endotracheal tube terminates at the level of the clavicles. Lungs and pleura: Trachea is normal in position. There is mild diffuse prominence of the interstitium, likely consistent with underlying interstitial edema. Fibrosis is also included in the differential but felt to be less likely. Lungs are clear of infiltrate, pleural effusion, vascular congestion, or pneumothorax. Cardiomediastinal silhouette: Cardiac and mediastinal silhouettes are unremarkable. Calcification of the aortic arch is present. Other: Bony structures are intact. IMPRESSION: Diffuse prominence of the interstitium, likely due to interstitial edema.
[2017-07-13] MEDS ORDERED: ADRENALIN 8 MG in NACL 0.9% 250ML 242 ML IV SCH (19:00)
[2017-07-13 20:52] LABS: ANA Screen, IFA Negative (Negative)
[2017-07-14 00:57] LABS: Hematocrit 25.8 % (30.3-42.9); Hemoglobin 8.4 gm/dl (10.1-14.3)
--- NOTE | 2017-07-14 02:15 | XRay Report ---
FINAL REPORT EXAM: XR CHEST 1V AP HISTORY: follow up respiratory failure TECHNIQUE: A portable view the chest was obtained. Comparison is made to the study of 07/13/2017. FINDINGS: The heart is mildly enlarged. The lungs reveal diffuse interstitial prominence. How much of this is on a chronic basis versus secondary to interstitial edema is uncertain. There is patchy airspace disease in the left lung base. Left-sided effusion cannot be excluded. The ET tube appears in good position above the estelita. There are EKG leads overlying the chest wall. The bones and soft tissues are unchanged. IMPRESSION: Stable interstitial prominence as described. How much of this is on a chronic basis versus secondary to interstitial edema is uncertain. Patchy airspace disease in left lung base with possible left-sided effusion.
[2017-07-14] MEDS: SODIUM BICARBONATE 150 MEQ in D5W 1,000 ML IV SCH ×2 (02:16→02:48)
[2017-07-14] MEDS: ALBURX 25% (ALBUMIN) IV SCH (02:44)
[2017-07-14] MEDS: NEO-SYNEPHRINE 100 MG in NACL 0.9% 90 ML IV SCH (02:46)
[2017-07-14] MEDS ORDERED: NACL 0.9% 1000 ML 1,000 ML IV ONE (03:34)
[2017-07-14] MEDS ORDERED: ADRENALIN ONE (03:45)
[2017-07-14] MEDS ORDERED: SODIUM BICARBONATE IV ONE (03:45)
[2017-07-14 04:01] LABS: Hematocrit 21.5 % (30.3-42.9); Mean Corpuscular HGB Conc 33 % (30-34); Mean Corpuscular Hemoglobin 35 pg (28-32); Mean Corpuscular Volume 105 fl (79-97); Red Blood Count 2.04 M/mm3 (3.65-5.03); Red Cell Distribution Width 19.6 % (13.2-15.2)
[2017-07-14 04:06] LABS: Platelet Count 82 K/mm3 (140-440)
[2017-07-14 04:15] LABS: INR 5.46 (0.87-1.13)
[2017-07-14 04:27] LABS: Calcium 4.8 mg/dL (8.4-10.2)
--- NOTE | 2017-07-14 04:47 | Event Note ---
Date: 07/14/17 CODE BLUE called Initial rhythm [facility] ACLS protocol was initiated There was no ROSC, time of 0400 Refer to code sheet for details Family bedside
[2017-07-14 06:07] VITALS: BP 44/23
== END 2017-07-14 06:20 | DRG 208 ==
LOC: ED 13:28 → 3A 07-09 02:38 → CC1 07-12 19:40
PROVIDERS: ADMIT Internal Medicine; ATTEND Internal Medicine
PROC: 4A033R1 Measurement of Arterial Saturation, Peripheral, Percutaneous Approach (ICD-10-PCS; 2017-07-11)
PROC: 0FJB8ZZ Inspection of Hepatobiliary Duct, Via Natural or Artificial Opening Endoscopic (ICD-10-PCS; 2017-07-12)
PROC: BF131ZZ Fluoroscopy of Gallbladder and Bile Ducts using Low Osmolar Contrast (ICD-10-PCS; 2017-07-12)
PROC: 0DB58ZX Excision of Esophagus, Via Natural or Artificial Opening Endoscopic, Diagnostic (ICD-10-PCS; 2017-07-12)
PROC: 30233L1 Transfusion of Nonautologous Fresh Plasma into Peripheral Vein, Percutaneous Approach (ICD-10-PCS; principal; 2017-07-13)
PROC: 5A1945Z Respiratory Ventilation, 24-96 Consecutive Hours (ICD-10-PCS; 2017-07-13)
PROC: 30233N1 Transfusion of Nonautologous Red Blood Cells into Peripheral Vein, Percutaneous Approach (ICD-10-PCS; 2017-07-13)
PROC: 30233K1 Transfusion of Nonautologous Frozen Plasma into Peripheral Vein, Percutaneous Approach (ICD-10-PCS; 2017-07-13)
PROC: 0BH17EZ Insertion of Endotracheal Airway into Trachea, Via Natural or Artificial Opening (ICD-10-PCS; 2017-07-13)
PROC: 02HV33Z Insertion of Infusion Device into Superior Vena Cava, Percutaneous Approach (ICD-10-PCS; 2017-07-13)
PROC: B548ZZA Ultrasonography of Superior Vena Cava, Guidance (ICD-10-PCS; 2017-07-13)
DX: J96.01 Acute respiratory failure with hypoxia (principal); K25.0 Acute gastric ulcer with hemorrhage; K83.1 Obstruction of bile duct; E87.1 Hypo-osmolality and hyponatremia; D68.9 Coagulation defect, unspecified; N17.9 Acute kidney failure, unspecified; R79.89 Other specified abnormal findings of blood chemistry; R55 Syncope and collapse; E87.6 Hypokalemia; F17.200 Nicotine dependence, unspecified, uncomplicated; F41.9 Anxiety disorder, unspecified; K74.60 Unspecified cirrhosis of liver; F10.10 Alcohol abuse, uncomplicated; Y90.9 Presence of alcohol in blood, level not specified; E83.42 Hypomagnesemia; E83.39 Other disorders of phosphorus metabolism; D64.9 Anemia, unspecified
CPT/HCPCS: 36415; 36600; 71045; 71046; 74019; 76705; 80048; 80053; 80074; 82140; 82550; 82553; 82728; 82803; 83516; 83520; 83550; 83690; 83735; 83930; 84100; 84443; 84484; 85007; 85014; 85018; 85025; 85027; 85610; 85730; 86038; 86850; 86900; 86901; 86920; 87040; 88305; 93005; 93010; 93306; 93880; 94002; 94003; 94640; 94760; 99406; A4649; C9113; J0171; J1170; J1644; J1720; J2060; J2354; J2370; J2405; J2704; J3430; J3475; J3480; J7030; J7040; J7050; J7070; P9016; P9017; P9047